=== PATIENT | male | born 1985 | race Caucasian/White ===

== ENCOUNTER 2022-11-10 22:32 | Observation (INO) | payer MEDICAID, SELFPAY ==
[2022-11-10 22:33] VITALS: BP 163/102; PULSE 67; RESP 22; TEMP 36.8; O2SAT 97
[2022-11-10 22:40] VITALS: BMI 31.8
[2022-11-10 22:48] VITALS: BP 164/105; PULSE 78; RESP 14; O2SAT 99
--- NOTE | 2022-11-10 23:05 | US_ITS ---
EXAM: US abdomen, limited, right upper quadrant. HISTORY: PAIN-UPPER ABD TECHNIQUE: US Abdomen RUQ (limited) COMPARISON: None. LIMITATIONS: Constipation movement due to pain. LIVER Size: Elongated right hepatic lobe measuring 19.3 cm in length. Masses: None. Contour: Normal. Echotexture: Normal. Bile ducts: Normal. Portal veins: Normal. Normal hepatopedal flow. Visualized hepatic veins are also patent. GALLBLADDER Size: Mildly distended measuring 11.4 cm in length by 4.3 cm in transverse diameter. Stones/sludge: Multiple mobile stones. Wall thickness: Normal. Gallbladder wall measures 2.4 mm in thickness. Pericholecystic fluid: None. Sonographic Razo sign: Negative. EXTRAHEPATIC BILE DUCTS: Normal. Common bile duct measures 4.8 mm in transverse diameter. RIGHT KIDNEY: Normal. Right kidney measures 9.5 cm in length. No hydronephrosis. ASCITES: None. PLEURAL EFFUSIONS: None. OTHER: Visualized pancreas is unremarkable. CONCLUSION: Cholelithiasis. Mildly distended gallbladder. No gallbladder wall thickening, pericholecystic fluid or biliary ductal dilatation. Electronically Signed: Shahbaz Mcpherson MD at 0:06 EDT , US/Gallbladder IMPRESSION: undefined
[2022-11-10 23:30] LABS: Bacteria 0 SEEN /hpf (None Seen); Mucous, Urine 0 SEEN /hpf (<or=2+); Red Blood Cells-Urine 0 SEEN /hpf (0-5); Squamous Epithelial Cells - UA 0 SEEN /hpf (0-5); White Blood Cells 0 SEEN /hpf (0-5)
[2022-11-10 23:32] LABS: Color, Urine Yellow (Yellow); Glucose, Dipstick Normal (Normal); Ketone-Dipstick Negative (Negative); Leukocyte Esterase-Dipstick Negative /ul (Negative); Nitrite-Dipstick Negative (Negative); Occult Blood-Urine Negative /ul (Negative); Protein-Dipstick 15 mg/dl (Negative); Specific Gravity, Urine 1.025 (1.002-1.030); Urine Bilirubin Dipstick Negative (Negative); Urine Clarity Clear (Clear); Urine Urobilinogen Normal (Normal)
--- NOTE | 2022-11-10 23:36 | EDS_ITS ---
HPI HPI - GI History of Present Illness Chief Complaint: Abd Pain Informant: patient Abdominal Pain/Flank Pain Onset: Today (Several hours) Context: Gradual Onset Timing: Continuous and Waxes and wanes (Initially but now constant) Quality: Aching Location: RUQ (Radiating around to the right mid back, kind of between his shoulder blades) Current Severity: Severe Maximum Severity: Severe Worsened by: Movement (a little) Relieved by: Nothing Nausea/Vomiting/Emesis GI Symptom: Positive for Nausea and Vomiting (only when I forced myself) Quality: Positive for Nonbilious; Negative for Blood streaks Diarrhea/Melena/Hematochezia GI Symptom: Negative for Diarrhea, Melena or Hematochezia Associated Symptoms Associated Symptoms: Negative for Dysuria, Frequency, Hematuria or Urgency Narrative Narrative: Patient with right upper quadrant pain that radiates into his right mid back, initially colicky but no constant painful never had this before, no prior abdominal surgeries. No urinary symptoms recently. A little worse when he takes a deep breath in, no recent cough, shortness of breath, or fevers. No recent leg pain or swelling. No history of DVT or PE. No recent travel out of the area or immobilization, hospitalization. [facility] Medical History Hypertension Home Medications lisinopril 40 mg tablet 40 mg PO DAILY 11/10/22 [History Last Taken Unknown] Allergy/AdvReac Type Severity Reaction Status Date / Time No Known Allergies Allergy Verified 11/10/22 22:39 Social History Smoking Status: Current every day smoker tobacco type: cigarettes ROS ROS ED Constitutional Constitutional ED: Denies chills or fever(s) Eyes Eyes: Denies change in vision or diplopia ENT ENT ED: Denies rhinorrhea or sore throat Cardiovascular Cardiovascular: Denies chest pain, leg edema or palpitations Respiratory/Chest Respiratory/Chest: Denies cough or dyspnea Gastrointestinal Gastrointestinal: Reports abdominal pain, nausea and vomiting; Denies diarrhea or melena Genitourinary Genitourinary ED: Denies dysuria or hematuria Musculoskeletal Musculoskeletal: Denies back pain, extremity pain or neck pain Integumentary Denies abscess or rash Neurologic Neurologic: Denies headache(s), paresthesias or weakness Psychiatric Psychiatric: Denies anxiety or suicidal thoughts EXAM Physical Exam Const Vital Signs: 11/10/22 22:33 11/10/22 22:48 Temperature 98.2 F Temperature Source Temporal Pulse Rate 67 78 Respiratory Rate 22 H 14 Blood Pressure 163/102 H 164/105 H Blood Pressure Mean 122 124 Pulse Ox 97 99 Oxygen Delivery Method Room Air Room Air Positive well nourished and well developed Constitutional Narrative: Uncomfortable, holding right upper quadrant/right lower ribs area, moving around the room without difficulty. General Appearance ED: well developed and NAD HEENT Reports moist mucous membranes normocephalic and atraumatic Eyes PERRL and EOMs intact bilaterally Neck full ROM and supple Resp normal respiratory effort and clear to auscultation bilaterally Cardio regular rate, regular rhythm and no murmurs GI non-tender and non-distended GI Narrative: Initially no right upper quadrant tenderness, however when performing Razo's test, very positive Auscultation: normoactive bowel sounds Palpation: soft Back/Spine no CVA tenderness General Back: other FROM Extremity normal to inspection General Extremety ED: Negative for edema, pulses abnormal or tenderness General Extremity: Negative for edema or pulses abnormal Neuro oriented x3, CN's II-XII intact bilaterally and no sensory deficits noted Sensorium / Orientation: awake and alert Motor Exam: strength 5/5 throughout Skin no rashes or lesions noted and no wounds MDM MDM MDM Narrative Medical decision making narrative: Differential here includes biliary colic, GI etiologies, lower lobe pneumonia, kidney stone/renal colic. I ordered an ultrasound of the right upper quadrant since that was more likely to be the source, it confirms cholelithiasis, pain medication help, he has a leukocytosis but no elevation of his liver enzymes and his urine is normal/clear. On reexamination his pain is improved but still pre sent especially in his back. He still has significant Razo sign with palpation in his right upper quadrant. Given that and his leukocytosis with a leftward shift, my suspicion is that he has early cholecystitis. Discussed with Dr. Rosenthal on for surgery who is in agreement with admission, I started him on Zosyn and more pain medication. Lab Data Attestation: I reviewed the patient's lab results. Labs: Laboratory Results - last 24 hr 11/10/22 11/11/22 11/11/22 23:25 00:30 00:30 WBC 15.9 H RBC 4.97 Hgb 14.8 Hct 43.0 MCV 86.5 MCH 29.8 MCHC 34.4 RDW Std Deviation 39.4 RDW Coeff of Caprice 12.5 Plt Count 204 MPV 11.4 Immature Gran % (Auto) 0.400 Neut % (Auto) 82.2 H Lymph % (Auto) 12.6 L [place] % (Auto) 4.1 Eos % (Auto) 0.3 Baso % (Auto) 0.4 Absolute Neuts (auto) 13.0 H Absolute Lymphs (auto) 1.99 Nucleated RBC % 0 Plt Morphology Comment CLUMPED Sodium 139 Potassium 4.1 Chloride 111 H Carbon Dioxide 20.0 L Anion Gap 8 BUN 15 Creatinine 1.02 Estim Creat Clear Calc 108.83 Est GFR (MDRD) Af Amer 105 Est GFR (MDRD) Non-Af 87 BUN/Creatinine Ratio 14.7 Glucose 125 H Calcium 9.9 Total Bilirubin 0.40 AST 27 ALT 27 Alkaline Phosphatase 60 Total Protein 8.7 H Albumin 4.3 Globulin 4.4 H Albumin/Globulin Ratio 1.0 Lipase 129 Urine Color Yellow Urine Clarity Clear Urine pH 5.0 Ur Specific [place] 1.025 Urine Protein 15 H Urine Glucose (UA) Normal Urine Ketones Negative Urine Occult Blood Negative Urine Nitrite Negative Urine Bilirubin Negative Urine Urobilinogen Normal Ur Leukocyte Esterase Negative Urine RBC 0 SEEN Urine WBC 0 SEEN Ur Squamous Epith Cells 0 SEEN Urine Bacteria 0 SEEN Urine Mucus 0 SEEN Radiography Diagnostic Testing: Clinical Impression(s) from Imaging Studies Gallbladder Ultrasound 11/10/22 23:05 IMPRESSION: undefined My interpretation of the US agrees with that of the radiologist. Discharge Plan Triage Chief Complaint: Abd Pain ED Provider: Ru Olson Dx/Rx/DC Orders Clinical Impression: Acute calculous cholecystitis Prescriptions: No Action lisinopril 40 mg tablet 40 mg PO DAILY Primary Care Provider: Care Physician,No Primary Referrals: Care Physician,No Primary [Primary Care Provider] - Disposition Disposition: [facility]
[2022-11-11] VITALS (14 sets, daily range): BP systolic 117–203; BP diastolic 81–122; PULSE 59–120; RESP 18; TEMP 36.4–37.6; O2SAT 94–98; BMI 31.5
[2022-11-11] MEDS: Ondansetron 4 MG/2 ML Vial IV ×2 (00:17→18:34)
[2022-11-11] MEDS: Morphine 4 MG/ML Syringe IV ×2 (00:17→02:08)
[2022-11-11] MEDS: Ketorolac 30 MG/ML Syringe IV ×3 (00:17→23:22)
[2022-11-11 00:36] LABS: Absolute Lymphocyte Count 1.99 X10^3/uL (0.83-4.51); Basophil# 0.06 X10^3/uL; Basophil% 0.4 % (0-1); Eosinophil# 0.05 X10^3/uL; Eosinophils% 0.3 % (0-5); Hemoglobin 14.8 g/dL (13.0-16.5); Lymphocyte # 1.99 X10^3/ul (0.83-4.51); Lymphocyte % 12.6 % (19-41); Mean Corp Hgb Conc 34.4 g/dL (32-36); Mean Corpuscular Hgb 29.8 pg (27.0-32.0); Mean Corpuscular Volume 86.5 fL (80-94); Mean Platelet Vol. 11.4 fl (6.2-12.0); Monocyte# 0.65 X10^3/uL; Monocyte% 4.1 % (0-10); NRBC Flagged by Analyzer 0 % (0-5); Neutrophil # 13.04 X10^3/uL (2.7-7.7); Neutrophil % 82.2 % (47-70); POSITIVE COUNT YES; Platelet Count 204 K/mm3 (150-450); RBC Distribution Width CV 12.5 % (11.6-14.6); RBC Distribution Width SD 39.4 fl (35.1-43.9); Red Blood Count 4.97 M/mm3 (4.6-6.2); White Blood Count 15.9 K/mm3 (4.4-11.0)
[2022-11-11 00:38] LABS: Differential Indicated SCAN CRITERIA MET
[2022-11-11 00:50] LABS: Platelet Morphology CLUMPED
[2022-11-11 00:56] LABS: AST(SGOT) 27 U/L (15-37); Alanine Aminotransfer ALT/SGPT 27 U/L (16-61); Albumin, Serum 4.3 g/dL (3.2-5.0); Alkaline Phosphatase 60 U/L (45-117); Anion Gap 8 (5-15); BUN 15 mg/dL (7-18); BUN/Creat Ratio 14.7 RATIO (10-20); Calcium,Total 9.9 mg/dL (8.5-10.1); Chloride 111 mmol/L (98-107); Creatinine, Serum 1.02 mg/dL (0.70-1.30); EST Glomerular Filtration Rate 87 mL/min (>60); Est Glom Filt Rate - Afr Amer 105 mL/min (>60); Estimated Creatinine Clearance 108.83 ml/min; Globulin 4.4 g/dL (2.2-4.2); Glucose 125 mg/dL (74-106); Lipase 129 U/L (73-393); Potassium 4.1 mmol/L (3.5-5.1); Protein, Total 8.7 g/dL (6.4-8.2); Sodium Level 139 mmol/L (136-145)
[2022-11-11] MEDS: Dextrose 5%/0.9% NaCl 1,000 ML 75 ML IV ×2 (03:37→20:39)
[2022-11-11] MEDS: HYDROmorphone 1 MG/ML Syringe IV ×7 (03:38→23:29)
[2022-11-11] MEDS: 0.9% Saline Lock 10 ML Syringe IV ×7 (03:38→23:29)
[2022-11-11] MEDS: Lisinopril 40 MG Tablet PO (06:46)
--- NOTE | 2022-11-11 07:18 | HP.PCM.SX_ITS ---
HPI - General General Date of Admission: 11/11/22 Date of Service: 11/11/22 Chief Complaint: abdominal pain HPI Narrative EUSEBIA HAMILTON, is a 37 M who presents with abdominal pain. Recently released from nursing home. Patient began with pain suddenly yesterday. Also associated with nausea/emesis. Denies fevers. Presented to [facility] ED with elevated WBC, normal LFTs. Pain is constant and never had this before, no prior abdominal surgeries.? No u rinary symptoms recently.? A little worse when he takes a deep breath in, no recent cough, shortness of breath, or fevers.? No recent leg pain or swelling.? No history of DVT or PE.? No recent travel out of the area or immobilization, hospitalization. [facility] Medical History Hypertension Home Medications lisinopril 40 mg tablet 40 mg PO DAILY 11/10/22 [History Last Taken Unknown] Allergy/AdvReac Type Severity Reaction Status Date / Time No Known Allergies Allergy Verified 11/10/22 22:39 Social History Smoking Status: Former smoker ROS Constitutional Constitutional: Reports chills and fever(s); Denies weight gain or weight loss Cardiovascular Cardiovascular: Denies chest pain at rest Respiratory/Chest Respiratory/Chest: Denies shortness of breath at rest Gastrointestinal Gastrointestinal: Reports abdominal pain Genitourinary Genitourinary: Denies hematuria Musculoskeletal Musculoskeletal: Denies abnormal gait Integumentary Integumentary: Denies jaundice Neurologic Neurologic: Denies focal weakness Endocrine Endocrinology: Denies flushing Hematologic/Lymphatic Hematologic/Lymphatic: Denies easy bleeding or easy bruising Vital Signs Vital Signs Vital Signs: 11/10/22 22:33 11/10/22 22:48 11/11/22 02:17 Temperature 98.2 F 98 F Temperature Source Temporal Temporal Pulse Rate 67 78 76 Respiratory Rate 22 H 14 18 Respiratory Effort Respiratory Depth Respiratory Pattern Blood Pressure 163/102 H 164/105 H 157/97 H Blood Pressure Mean 122 124 117 Blood Pressure Source Blood Pressure Position Blood Pressure Location Pulse Ox 97 99 96 Oxygen Delivery Method Room Air Room Air Room Air 11/11/22 03:07 11/11/22 03:10 11/11/22 05:56 Temperature 98.2 F 98.3 F Temperature Source Oral Oral Pulse Rate 59 L 73 Respiratory Rate 18 18 Respiratory Effort Normal Non-Labored Respiratory Depth Normal Respiratory Pattern Normal Blood Pressure 191/114 H 187/122 H Blood Pressure Mean 139 143 Blood Pressure Source Monitor Monitor Blood Pressure Position Semi-Fowlers Semi-Fowlers Blood Pressure Location Right Arm Right Arm Pulse Ox 94 95 Oxygen Delivery Method Room Air Room Air Room Air Weight Weight: 105.5 kg Body Mass Index (BMI) 31.5 Physical Exam Const oriented x3 Constitutional Narrative: writhing in bed in pain, states that it is constant Resp normal respiratory effort Cardio regular rate GI GI Narrative: abdomen is tender RUQ with positive Razo's sign Extremity no clubbing, cyanosis or edema Results Medical Records Data Attestation: I reviewed the patient's medical records Lab / Micro Data Attestation: I reviewed the patient's lab results. Result Diagrams: 11/11/22 00:30 11/11/22 00:30 Labs: Laboratory Results - last 24 hr 11/10/22 23:25: Urine Color Yellow, Urine Clarity Clear, Urine pH 5.0, Ur Specific [place] 1.025, Urine Protein 15 H, Urine Glucose (UA) Normal, Urine Ketones Negative, Urine Occult Blood Negative, Urine Nitrite Negative, Urine Bilirubin Negative, Urine Urobilinogen Normal, Ur Leukocyte Esterase Negative, Urine RBC 0 SEEN, Urine WBC 0 SEEN, Ur Squamous Epith Cells 0 SEEN, Urine Bacteria 0 SEEN, Urine Mucus 0 SEEN 11/11/22 00:30: WBC 15.9 H, RBC 4.97, Hgb 14.8, Hct 43.0, MCV 86.5, MCH 29.8, MCHC 34.4, RDW Std Deviation 39.4, RDW Coeff of Caprice 12.5, Plt Count 204, MPV 11.4, Immature Gran % (Auto) 0.400, Neut % (Auto) 82.2 H, Lymph % (Auto) 12.6 L, [place] % (Auto) 4.1, Eos % (Auto) 0.3, Baso % (Auto) 0.4, Absolute Neuts (auto) 13.0 H, Absolute Lymphs (auto) 1.99, Nucleated RBC % 0, Plt Morphology Comment CLUMPED 11/11/22 00:30: Sodium 139, Potassium 4.1, Chloride 111 H, Carbon Dioxide 20.0 L , Anion Gap 8, BUN 15, Creatinine 1.02, Estim Creat Clear Calc 108.83, Est GFR (MDRD) Af Amer 105, Est GFR (MDRD) Non-Af 87, BUN/Creatinine Ratio 14.7, Glucose 125 H, Calcium 9.9, Total Bilirubin 0.40, AST 27, ALT 27, Alkaline Phosphatase 60, Total Protein 8.7 H, Albumin 4.3, Globulin 4.4 H, Albumin/Globulin Ratio 1.0 , Lipase 129 Radiology Impression Gallbladder Ultrasound 11/10/22 23:05 IMPRESSION: undefined Assessment & Plan Assessment/Plan (1) Acute calculous cholecystitis: PLAN: see below PLAN: Plan patient with intractable abdominal pain due to acute cholecystitis Will plan laparoscopic cholecystectomy I have counseled the patient as to the risks of the procedure, including but not limited to: infection, bleeding, injury to any blood vessels/nerves, scar tissue, injury to any intrabdominal organs, injury to kidney/ureters, injury to bowel/bladder, injury to the common bile duct/biliary tree, bile leakage, intraabdominal abscess/bleeding, hernias at incisional sites, wound infections, possible open procedure, complications of anesthesia, postoperative pneumonia/cardiac problems/blood clots etc. the patient understands. He agrees to proceed. I have answered all questions to the patient?s satisfaction and the patient has no further questions. Will attempt to find OR time as soon as feasible, however, between my schedule and the OR schedule this may take 1-3 days, etc.I have told the patient this.
--- NOTE | 2022-11-11 08:01 | EKG12_ITS ---
Test Reason : PRE OP Blood Pressure : / mmHG Vent. Rate : 061 BPM Atrial Rate : 061 BPM P-R Int : 164 ms QRS Dur : 088 ms QT Int : 368 ms P-R-T Axes : 022 -15 -07 degrees QTc Int : 370 ms Sinus rhythm with marked sinus arrhythmia Voltage criteria for left ventricular hypertrophy Abnormal ECG No previous ECGs available Confirmed by JOON GANNON, ARI ([id number]), newspaper copy editor KAYLEEN HERNANDEZ ([id number]) on 11/12/2022 8:26:16 AM Referred By: PASTORA Confirmed By:ARI DUPREE MD
--- NOTE | 2022-11-11 08:19 | NURSING ---
IV in left shoulder infiltrated, fluid collection noted. pt denies pain to area during palpation. call made to [facility] for restart - according to pt only place to get an IV on me is in my neck.
[2022-11-11] MEDS: amLODIPine 10 MG Tablet PO (09:23)
[2022-11-11] MEDS: hydrALAZINE 20 MG/ML Vial 10 MG IV ×2 (10:14→16:26)
--- NOTE | 2022-11-11 10:50 | PCM.CONS.GEN ---
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 He has a history of high blood pressure. He reported the pain was initially colicky. He never had anything like this previously. He reported it is a little bit worse with deep breathing but denied any cough, shortness of breath, or fevers. He had some associated nausea and review of systems was negative for diarrhea melena or hematochezia. His symptoms initially wax and wane but at the time of presentation they were constant and he did have some radiation to his mid back between his shoulder blades as well. Vital signs at presentation showed a temperature of 98.2, heart rate 67, blood pressure 163/102, respiratory rate of 22 and oxygen saturation was 97% on room air. He had a leukocytosis with a left shift and hyponatremia with hypochloremia which has since resolved. His lipase was normal. His UA was unremarkable other than some small proteinuria. An ultrasound of his gallbladder was performed and showed cholelithiasis with a mildly distended gallbladder and he was admitted to the surgical service with acute calculus cholecystitis and plan for laparoscopic cholecystectomy. Patient was found to have persistently elevated blood pressure despite reinitiating his home lisinopril 40 mg and we have been consulted for management of hypertension. Plan is for surgery on . Patient is evaluated at the bedside and currently just complaining of abdominal pain that radiates to his back. He was just medicated with Dilaudid. He states he has had blood pressure issues for some time and has been taking his home medication but does not follow-up regularly to have his blood pressure checked. He has no idea what his baseline blood pressure has been running prior to admission. [facility] Medical History (Updated 11/11/22 @ 11:[address] Annel Denson DO) History of heroin abuse History of methamphetamine abuse History of tobacco abuse Hypertension Home Medications lisinopril 40 mg tablet 40 mg PO DAILY 11/10/22 [History Last Taken Unknown] Allergy/AdvReac Type Severity Reaction Status Date / Time No Known Allergies Allergy Verified 11/10/22 22:39 Family History (Updated 11/11/22 @ 11:[address] Annel Denson DO) Other CAD (coronary artery disease) Heart disease no surgical history Social History (Updated 11/11/22 @ 11:[address] Annel Denson DO) Smoking Status: Former smoker alcohol intake: never substance use type: former substance user Date of last use: 26 months ago (heroin/methamphetamines) ROS Constitutional Constitutional: Reports chills; Denies anorexia, change in weight, fatigue, fever(s), malaise, night sweats, weakness or other Eyes Eyes: Denies blurry vision, change in eye color, change in vision, discharge from eye(s), double vision, erythema, eye pain, loss of vision or other ENT HEENT: Denies abnormal hearing, dysphagia, ear pain, epistaxis, headache(s), hearing loss, nasal congestion, nasal discharge, post nasal drip, sinus pressure, sore throat or other Cardiovascular Cardiovascular: Denies chest pain, claudication, dyspnea on exertion, edema, lightheadedness, orthopnea, palpitations, paroxysmal nocturnal dyspnea, rapid heart rate, syncope or other Respiratory/Chest Respiratory/Chest: Denies cough, dyspnea, excessive phlegm production, hemoptysis, productive cough, shortness of breath at rest, shortness of breath with exertion, wheezing or other Gastrointestinal Gastrointestinal: Reports abdominal pain and nausea; Denies coffee ground emesis, constipation, diarrhea, dyspepsia, hematemesis, hematochezia, loose stools, melena, vomiting or other Genitourinary Genitourinary: Denies burning urination, difficulty urinating, dysuria, hematuria, nocturia, urinary frequency, urinary hesitancy, urinary incontinence, urinary urgency or other Musculoskeletal Musculoskeletal: Denies arthralgias, back pain, joint pain, joint stiffness, joint swelling, myalgias, neck pain or other Neurologic Neurologic: Denies abnormal gait, abnormal speech, confusion, disequilibrium, dizziness, focal weakness, headache(s), numbness, paresthesias, seizure-like activity, seizures, syncope, tingling, tremor(s) or other Psychiatric Psychiatric: Denies anxiety, depression, homicidal ideation, suicidal ideation or other Endocrine Endocrinology: Denies change in body appearance, cold intolerance, excessive sweating, heat intolerance, polydipsia, polyuria or other Hematologic/Lymphatic Hematologic/Lymphatic: Denies anemia, easy bleeding, easy bruising, lymphadenopathy or other Allergic/Immunologic Allergic/Immunologic: Denies rhinitis, hives, eczemia, asthma or other Physical Exam Const alert, oriented x3 and well nourished Constitutional Narrative: Lower middle-aged white male, sitting up on the edge of the bed getting back into bed, appears cold, nontoxic but appears uncomfortable, currently complaining of abdominal pain radiating to his back HEENT normocephalic, head/scalp atraumatic, hearing grossly normal bilaterally and moist oral mucous membranes HEENT Narrative: Edentulous, Mallampati 2, no thrush Resp normal respiratory effort, no retractions, no use of accessory muscles and clear to auscultation bilaterally Auscultation: Negative for rales, rhonchi or wheezes Cardio regular rate, regular rhythm, S1 normal heart sound, S2 normal heart sound, no murmurs, no rub and no clicks; Negative for no gallops Cardio Narrative: S4 gallop noted GI normal to inspection, nondistended, normoactive bowel sounds and soft to palpation GI Narrative: Tender right upper quadrant with positive Razo sign Extremity no clubbing, cyanosis or edema Extremity Narrative: Pedal pulses and radial pulses are 2+ Neuro oriented x3, CN's II-XII intact bilaterally, moves all extremities and no focal motor deficits Speech: speech normal Psych Psych Narrative: Flat but appropriately interactive Lab / Micro Data Result Diagrams: 11/11/22 00:30 11/11/22 00:30 Labs: Laboratory Results - last 24 hr 11/10/22 23:25: Urine Color Yellow, Urine Clarity Clear, Urine pH 5.0, Ur Specific [place] 1.025, Urine Protein 15 H, Urine Glucose (UA) Normal, Urine Ketones Negative, Urine Occult Blood Negative, Urine Nitrite Negative, Urine Bilirubin Negative, Urine Urobilinogen Normal, Ur Leukocyte Esterase Negative, Urine RBC 0 SEEN, Urine WBC 0 SEEN, Ur Squamous Epith Cells 0 SEEN, Urine Bacteria 0 SEEN, Urine Mucus 0 SEEN 11/11/22 00:30: WBC 15.9 H, RBC 4.97, Hgb 14.8, Hct 43.0, MCV 86.5, MCH 29.8, MCHC 34.4, RDW Std Deviation 39.4, RDW Coeff of [place] 12.5, Plt Count 204, MPV 11.4, Immature Gran % (Auto) 0.400, Neut % (Auto) 82.2 H, Lymph % (Auto) 12.6 L, [place] % (Auto) 4.1, Eos % (Auto) 0.3, Baso % (Auto) 0.4, Absolute Neuts (auto) 13.0 H, Absolute Lymphs (auto) 1.99, Nucleated RBC % 0, Plt Morphology Comment CLUMPED 11/11/22 00:30: Sodium 139, Potassium 4.1, Chloride 111 H, Carbon Dioxide 20.0 L, Anion Gap 8, BUN 15, Creatinine 1.02, Estim Creat Clear Calc 108.83, Est GFR (MDRD) Af Amer 105, Est GFR (MDRD) Non-Af 87, BUN/Creatinine Ratio 14.7, Glucose 125 H, Calcium 9.9, Total Bilirubin 0.40, AST 27, ALT 27, Alkaline Phosphatase 60, Total Protein 8.7 H, Albumin 4.3, Globulin 4.4 H, Albumin/Globulin Ratio 1.0, Lipase 129 Radiology Impression Gallbladder Ultrasound 11/10/22 23:05 IMPRESSION: undefined Charges/Coding Visit Charges Inpatient E&M: 01117 Subs Hosp L2
--- NOTE | 2022-11-11 11:22 | ECHOD_ITS ---
Reason For Study: HTN Procedure This was a 2D Doppler, Color Flow transthoracic echocardiogram. Exam performed portable in patient room. Left Ventricle Normal LV size. Left ventricular systolic function is normal. The estimated ejection fraction is 60 %. Stage 1 diastolic dysfunction. No regional wall motion abnormalities noted. Right Ventricle Normal RV size. Normal systolic function. Atria Normal left atrium. Normal right atrium. Mitral Valve Normal mitral valve. Tricuspid Valve Normal tricuspid valve. Aortic Valve Trisinus/trileaflet aortic valve. Pulmonic Valve Normal pulmonic valve. Great Vessels Normal aortic root. The pulmonary artery is normal size. Normal inferior vena cava. Pericardium/Pleural No pericardial effusion. MMode/2D Measurements & Calculations LVIDd: 5.2 cm IVSd: 1.3 cm Ao root diam: 3.6 cm LVIDs: 3.0 cm LVPWd: 1.1 cm FS: 41.4 % LAV(MOD-bp): 43.1 ml LVAd ap4: 33.5 cm2 LVAd ap2: 27.5 cm2 LAV(MOD-bp) Indexed: 19.0 ml/m2 LVLd ap4: 9.3 cm LVLd ap2: 8.7 cm LAV(MOD-sp2): 37.9 ml EDV(MOD-sp4): 99.0 ml EDV(MOD-sp2): 75.2 ml LAV(MOD-sp4): 48.3 ml EDV(sp4-el): 101.9 ml EDV(sp2-el): 73.5 ml LVAs ap4: 18.9 cm2 LVAs ap2: 14.6 cm2 LVLs ap4: 7.7 cm LVLs ap2: 6.9 cm ESV(MOD-sp4): 40.9 ml ESV(MOD-sp2): 27.4 ml ESV(sp4-el): 39.5 ml ESV(sp2-el): 26.1 ml EF(MOD-sp4): 58.7 % EF(MOD-sp2): 63.6 % EF(sp4-el): 61.3 % SV(MOD-sp4): 58.1 ml SV(MOD-sp2): 47.8 ml SV(sp4-el): 62.4 ml LA dimension(2D): 4.3 cm LA A4 area: 19.3 cm2 RA A4 area: 15.5 cm2 Time Measurements MV dec time: 0.20 sec Doppler Measurements & Calculations MV E max eric: 63.8 cm/sec Lat Peak E' Eric: 20.1 cm/sec Med Peak E' Eric: 10.2 cm/sec MV A max eric: 68.9 cm/sec E/E' lat: 3.2 E/E' med: 6.3 MV E/A: 0.93 MV V2 max: 86.0 cm/sec MV dec slope: 317.6 cm/sec2 Ao V2 max: 110.8 cm/sec MV max P.0 mmHg Ao max P.9 mmHg MV V2 mean: 53.5 cm/sec Ao V2 mean: 80.8 cm/sec MV mean P.3 mmHg Ao mean P.9 mmHg MV V2 VTI: 26.4 cm Ao V2 VTI: 23.7 cm AV (velocity ratio): 0.88 LV V1 max: 101.5 cm/sec PA V2 max: 131.6 cm/sec LV V1 max P.1 mmHg PA V2 mean: 97.3 cm/sec LV V1 mean P.3 mmHg LV V1 mean: 71.4 cm/sec LV V1 VTI: 20.8 cm ECHO/Echo Complete Interpretation Summary Normal LV size. Left ventricular systolic function is normal. The estimated ejection fraction is 60 %. Stage 1 diastolic dysfunction. Structurally normal valves. Ordering Physician: Annel Denson Referring Physician: BRIANNA PCP Performed By: Trish Snyder RCS
[2022-11-11 11:29] LABS: Thyroid Stim Hormone (TSH) 2.38 uIU/mL (0.358-3.74)
[2022-11-11] MEDS: oxyCODONE 5 MG Tablet 10 MG PO ×2 (11:41→18:25)
--- NOTE | 2022-11-11 11:48 | ADDICTION ---
This worker met with patient to offer support while in hospital. Peer support will meet with patient as well. Patient will discharge back to [facility] treatment center once medically cleared after surgery. Will continue to check in.
[2022-11-11] MEDS: HYDROmorphone 0.5 MG/0.5 ML SYRINGE IV (13:37)
[2022-11-11] MEDS: hydroCHLOROthiazide 25 MG Tablet PO (13:37)
--- NOTE | 2022-11-11 18:16 | RDU_ITS ---
Reason For Study: Hypertension Right Renal Artery Left Renal Artery Right renal artery ostium Left renal artery ostium 65.5/21.8 142.7/49.9 RSV/EDV. PSV/EDV. Right renal artery proximal Left renal artery proximal PSV/EDV 128.9/41.3 PSV/EDV. 71.6/21.7 . Right renal artery mid 136.3/46.7 Left renal artery mid 75.7/23.7 PSV/EDV. PSV/EDV . Right renal artery distal Left renal artery distal 145.4/44.9 142.7/53.1 PSV/EDV. PSV/EDV. Right RAR 1.66. Left RAR 1.69. Right Renal Parenchyma Left Renal Parenchyma Upper Pole Medula 38.0/16.5 Left upper pole medulla 34.8/13.0 PSV/EDV. PSV/EDV . Right upper pole medulla EDR 0.40 . Left upper pole medulla EDR 0.40 . Right upper pole medulla R.I. Left upper pole medulla R.I. 0.62 . 0.57 . UP Cortex 24.4/10.7 PSV/EDV. Upper Samir Cortx 21.8/9.6 PSV/EDV. Left upper pole cortex EDR 0.40 . Right upper pole cortex EDR 0.40 . Left upper pole cortex R.I. 0.56 . Right upper pole cortex R.I. 0.56 . Left lower Pole medulla 29.1/13.5 Right lower Pole medulla 28.7/9.1 PSV/EDV . PSV/EDV . Left lower pole medulla EDR 0.50 . Right lower pole medulla EDR 0.30 . Left lower pole medulla R.I. 0.54 . Right lower pole medulla R.I. Lower Pole Cortx 24.8/11.1 PSV/EDV. 0.68 . Left lower pole cortex EDR 0.40 . Lower Pole Cortex 20.9/6.9 PSV/EDV. Left lower pole cortex R.I. 0.55 . Right lower pole cortex EDR 0.30 . Left Renal Hilar Right lower pole cortex R.I. 0.67 . LT Hilar avg 112.5/34.0 PSV/EDV . Right Renal Hilar Left hilar acceleration time 30 Right Hilar avg 47.9/16.8 PSV/EDV. m/sec. Right hilar acceleration time 40 Left Renal Dimensions m/sec. Left kidney size 10.25 cm . Right Renal Dimensions Left cortical dimension 1.6 cm . Right kidney size 11.80 cm . Right cortical dimension 1.22 cm . Aorta Proximal abdominal aorta 2.01 x 2.01 cm . Distal abdominal aorta 1.45 x 1.49 cm . Proximal abdominal aorta peak systolic velocity is 75.7 cm/sec . Distal abdominal aorta peak systolic velocity is 85.9 cm/sec . Procedures Technically difficult exam due to bowel gas. VL/Renal Artery Duplex Ultrasound Interpretation Summary Maximal aortic diameter is proximally at 2.01 x 2.01 cm in diameter which is no rmal. Normal aortic flow velocities. Less than 60% stenosis bilateral renal arteries Maintained right renal length of 11.8 cm Maintained left renal length of 10.25 cm Normal bilateral renal resistive indices suggesting normal parenchymal function Ordering Physician: Bharti Cruz Referring Physician: N/A Performed By: Zach Tomas RVT
[2022-11-11] MEDS: Labetalol (Prefilled) 20 MG/4 ML IV (18:34)
--- NOTE | 2022-11-11 19:33 | CT_ITS ---
STUDY: CTA CHEST REASON FOR EXAM: Male, 37 years old. Subclavian stenosis. Previous drug abuse. RADIATION DOSAGE (If Supplied By Facility): CTDIvol = ( 18.60 ) mGy, DLP = ( 670.06 ) mGycm TECHNIQUE: The examination was performed with the intravenous administration of 100 mL of Isovue 350. Post-processing of the angiographic images was performed, with multiplanar reformation and 3D reconstruction. Individualized dose optimization techniques were used for this CT. COMPARISON: None. FINDINGS: Normal enhancement of the main pulmonary artery and right and left pulmonary arteries. Normal enhancement of the bilateral peripheral pulmonary arteries. There is no demonstrated pulmonary embolism. Normal thoracic aorta and visualized great vessels. No visualized subclavian artery stenosis. No axillary arterial abnormality. There is no demonstrated aortic dissection. Normal heart and pericardium. No coronary artery calcifications Normal mediastinum. Normal hilar regions. Normal visualized trachea and bronchi. The lungs are well expanded. Normal pulmonary parenchyma. Normal pleura. Normal chest wall structures. Normal osseous structures. Hepatic steatosis. Upper abdomen appears otherwise grossly normal. CT/CTA Chest W/WO Contrast IMPRESSION: 1. Normal thoracic aorta. There is no evidence of stenosis of the great vessels. The bilateral subclavian and axillary arteries are normal diameter in appearance. 2. No evidence of pulmonary embolus. 3. No acute cardiopulmonary disease. Electronically Signed: Alban Rosario DO at 17:04 EDT Reading Location ID and State: [facility] Tel [phone], Service support ,
[2022-11-12 05:15] VITALS: BP 150/89; PULSE 82; RESP 18; TEMP 36.8; O2SAT 96
[2022-11-12] MEDS: Ketorolac 30 MG/ML Syringe IV ×4 (05:18→23:17)
[2022-11-12] MEDS: Acetaminophen 325 MG Tablet 650 MG PO (05:23)
[2022-11-12] MEDS: oxyCODONE 5 MG Tablet 10 MG PO (05:23)
--- NOTE | 2022-11-12 05:44 | PCM.HOSP.N ---
Hospitalist Note Pt with significant discrepancy in BP between B UE (>30mmHg SBP). CTA chest ordered to assess for Subclavian aa stenosis but need better IV access before it can be performed. Midline to be placed today. I did discuss with nsg to us arm with higher pressure for BP assessment at this time. Renal Duplex pending per general surgery.
[2022-11-12 07:09] LABS: Absolute Lymphocyte Count 2.14 X10^3/uL (0.83-4.51); Absolute Neutrophil Count 6.6 X10^3/uL (2.0-7.7); Basophil# 0.03 X10^3/uL; Basophil% 0.3 % (0-1); Eosinophils% 1.9 % (0-5); Hematocrit 42.9 % (40-54); Hemoglobin 14.5 g/dL (13.0-16.5); Lymphocyte # 2.14 X10^3/ul (0.83-4.51); Lymphocyte % 20.8 % (19-41); Mean Corp Hgb Conc 33.8 g/dL (32-36); Mean Corpuscular Hgb 29.7 pg (27.0-32.0); Mean Corpuscular Volume 87.7 fL (80-94); Mean Platelet Vol. 10.8 fl (6.2-12.0); Monocyte# 1.29 X10^3/uL; Monocyte% 12.5 % (0-10); NRBC Flagged by Analyzer 0 % (0-5); Neutrophil # 6.62 X10^3/uL (2.7-7.7); Neutrophil % 64.3 % (47-70); Platelet Count 222 K/mm3 (150-450); RBC Distribution Width CV 13.1 % (11.6-14.6); RBC Distribution Width SD 42.4 fl (35.1-43.9); Red Blood Count 4.89 M/mm3 (4.6-6.2); White Blood Count 10.3 K/mm3 (4.4-11.0)
--- NOTE | 2022-11-12 07:29 | PCM.PN.HOSP ---
Reason for Visit Reason for Visit: Diagnoses Essential (primary) hypertension (11/11/22) Calculus of gallbladder with acute cholecystitis without obstruction (11/11/22) Subjective Subjective Follow-up for acute calculus cholecystitis. Blood pressure is better. Objective Data Objective Data Vital Signs: Vital Signs Temp Pulse Resp BP Pulse Ox O2 Del Method 98.3 F 82 18 150/89 H 96 Room Air 11/12/22 05:15 11/12/22 05:15 11/12/22 05:15 11/12/22 05:15 11/12/22 05:15 11/12/22 05:15 Oxygen Delivery Method Room Air Weight: 232 lb 9.403 oz Body Mass Index (BMI) 31.5 Intake & Output: Intake and Output for Last 24 Hours 11/10/22 11/11/22 11/12/22 23:59 23:59 23:59 Intake Total 1291.25 / 1291.25 398.75 / 398.75 Balance 1291.25 / 1291.25 398.75 / 398.75 Lab / Micro Data Result Diagrams: 11/12/22 06:35 11/12/22 06:35 Labs: Laboratory Results - last 24 hr 11/11/22 00:30: TSH 2.38 11/11/22 12:46: Cortisol 29.00 H 11/12/22 06:35: WBC 10.3, RBC 4.89, Hgb 14.5, Hct 42.9, MCV 87.7, MCH 29.7, MCHC 33.8, RDW Std Deviation 42.4, RDW Coeff of Caprice 13.1, Plt Count 222, MPV 10.8, Immature Gran % (Auto) 0.200, Neut % (Auto) 64.3, Lymph % (Auto) 20.8, [place] % (Auto) 12.5 H, Eos % (Auto) 1.9, Baso % (Auto) 0.3, Absolute Neuts (auto) 6.6, Absolute Lymphs (auto) 2.14, Nucleated RBC % 0 Radiography Diagnostic Testing: Radiology Impression Echocardiogram 11/11/22 11:22 Interpretation Summary Normal LV size. Left ventricular systolic function is normal. The estimated ejection fraction is 60 %. Stage 1 diastolic dysfunction. Structurally normal valves. Ordering Physician: Annel Denson Referring Physician: NO PCP Performed By: Trish Snyder RCS Physical Exam Narrative Seen and examined. Blood pressure profile is better. Patient denies prior history of pancreatitis but had similar right upper quadrant pain in halfway couple years ago. Denies chronic alcohol use. Physical exam General: Alert, Oriented x3, Cooperative HEENT: Atraumatic, PERRLA, EOMI, Normocephalic Oral: Oral mucosa moist. No Gingival or Mucosal Lesions/ Ulcerations Neck: Supple, No JVD, Negative Carotid Bruits Lungs: Air entry diminished in bilateral lung bases. No crepitation/rhonchi Cardiovascular: Regular rate, Regular Rhythm, Normal S1, Normal S2, No murmurs Abdomen: Bowel Sounds Present, Soft, Non Tender, Non-Distended : No renal angle tenderness. No suprapubic tenderness. Extremities: No edema, Capillary Refill Less than 3 Seconds Skin: No rashes, No breakdown Musculoskeletal: No Tenderness to Palpation of Joints or Extremities Neurological: Cranial nerves II-XII grossly intact, DTR 2+/4 and Symmetrical, Neuro grossly intact Psych/Mental Status: Normal Affect, Appropriate. Assessment & Plan Assessment/Plan (1) HTN (hypertension): PLAN: Plan Hypertension: Blood pressure systolic 130s. On amlodipine 10 mg daily, lisinopril 40 mg daily and HCTZ 25 mg daily. As needed hydralazine IV and labetalol. TSH and cortisol normal. 2D echo EF 60% stage I diastolic dysfunction with structurally normal valves suggestive of mild HFpEF. Overall hypertensin with elevated BP mainly due to nonadherence to medications. Renal artery duplex shows less than 60% stenosis bilateral renal arteries. Acute calculus cholecystitis -Plan is for surgery on 11/13/2022. 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 Left ventricular systolic function is normal. The estimated ejection fraction is 60 %. Stage 1 diastolic dysfunction. Structurally normal valves. Renal Artery Duplex 11/11/22 18:16 Interpretation Summary Maximal aortic diameter is proximally at 2.01 x 2.01 cm in diameter which is normal. Normal aortic flow velocities. Less than 60% stenosis bilateral renal arteries Maintained right renal length of 11.8 cm Maintained left renal length of 10.25 cm Normal bilateral renal resistive indices suggesting normal parenchymal function Charges/Coding Visit Charges Inpatient E&M: 75812 Subs Hosp L2
[2022-11-12 07:35] LABS: Anion Gap 6 (5-15); BUN 17 mg/dL (7-18); Calcium,Total 8.6 mg/dL (8.5-10.1); Chloride 101 mmol/L (98-107); Creatinine, Serum 1.13 mg/dL (0.70-1.30); EST Glomerular Filtration Rate 77 mL/min (>60); Est Glom Filt Rate - Afr Amer 94 mL/min (>60); Estimated Creatinine Clearance 98.24 ml/min; Glucose 100 mg/dL (74-106); Phosphorus 3.5 mg/dL (2.5-4.9); Potassium 3.7 mmol/L (3.5-5.1); Sodium Level 134 mmol/L (136-145)
[2022-11-12] MEDS: 0.9% Saline Lock 10 ML Syringe IV ×6 (07:46→23:17)
[2022-11-12] MEDS: HYDROmorphone 0.5 MG/0.5 ML SYRINGE IV ×5 (07:46→21:53)
[2022-11-12 09:15] VITALS: BP 132/79; PULSE 88; RESP 18; TEMP 36.4; O2SAT 97
[2022-11-12] MEDS: Lisinopril 40 MG Tablet PO (09:17)
[2022-11-12] MEDS: hydroCHLOROthiazide 25 MG Tablet PO (09:17)
[2022-11-12] MEDS: amLODIPine 10 MG Tablet PO (09:17)
--- NOTE | 2022-11-12 12:15 | NURSING ---
Call placed to printing estimator for ETA of midline placement. Call center stated they would reach out to the nurse and call back with a time.
[2022-11-12 15:15] VITALS: BP 116/70; PULSE 79; RESP 18; TEMP 36.8; O2SAT 98
--- NOTE | 2022-11-12 16:22 | PCM.PN.SRG ---
Subjective Subjective patient awaiting surgery - scheduled for tomorrow late morning pain under better control Objective Data Objective Data Vital Signs: Vital Signs Temp Pulse Resp BP Pulse Ox O2 Del Method 98.3 F 79 18 116/70 98 Room Air 11/12/22 15:15 11/12/22 15:15 11/12/22 15:15 11/12/22 15:15 11/12/22 15:15 11/12/22 15:15 Oxygen Delivery Method Room Air Weight: 105.5 kg Body Mass Index (BMI) 31.5 Intake & Output: Intake and Output for Last 24 Hours 11/10/22 11/11/22 11/12/22 23:59 23:59 23:59 Intake Total 1291.25 / 1291.25 970.00 / 970.00 Balance 1291.25 / 1291.25 970.00 / 970.00 Lab / Micro Data Attestation: I reviewed the patient's lab results. Result Diagrams: 11/12/22 06:35 11/12/22 06:35 Labs: Laboratory Results - last 24 hr 11/12/22 06:35: WBC 10.3, RBC 4.89, Hgb 14.5, Hct 42.9, MCV 87.7, MCH 29.7, MCHC 33.8, RDW Std Deviation 42.4, RDW Coeff of Caprice 13.1, Plt Count 222, MPV 10.8, Immature Gran % (Auto) 0.200, Neut % (Auto) 64.3, Lymph % (Auto) 20.8, [place] % (Auto) 12.5 H, Eos % (Auto) 1.9, Baso % (Auto) 0.3, Absolute Neuts (auto) 6.6, Absolute Lymphs (auto) 2.14, Nucleated RBC % 0 11/12/22 06:35: Sodium 134 L, Potassium 3.7, Chloride 101, Carbon Dioxide 27.0, Anion Gap 6, BUN 17, Creatinine 1.13, Estim Creat Clear Calc 98.24, Est GFR (MDRD) Af Amer 94, Est GFR (MDRD) Non-Af 77, BUN/Creatinine Ratio 15.0, Glucose 100, Calcium 8.6, Phosphorus 3.5, Magnesium 2.0 Radiography Diagnostic Testing: Radiology Impression Renal Artery Duplex 11/11/22 18:16 Interpretation Summary Maximal aortic diameter is proximally at 2.01 x 2.01 cm in diameter which is normal. Normal aortic flow velocities. Less than 60% stenosis bilateral renal arteries Maintained right renal length of 11.8 cm Maintained left renal length of 10.25 cm Normal bilateral renal resistive indices suggesting normal parenchymal function Ordering Physician: Bharti Cruz Referring Physician: N/A Performed By: Zach Tomas RVT Physical Exam Const alert and oriented x3 General Appearance: cooperative HEENT normocephalic Eyes no scleral icterus Neck supple Resp normal respiratory effort Effort and Inspection: able to speak in complete sentences GI GI Narrative: soft and benign Assessment & Plan Assessment/Plan (1) Acute calculous cholecystitis: PLAN: see below PLAN: Plan appreciate Internal Medicine assistance in hypertension management plan for surgery tomorrow, (WBC has normalized) patient has been counseled as to risks/benefits and he agrees to proceed pending outcome of surgery, he may be discharged to home tomorrow or Thursday Patient acknowledges above
--- NOTE | 2022-11-12 17:25 | NURSING ---
This nurse received a call from Dr. Irvin's assistant manager who provided a phone number where Dr. Irvin could be reached. Dr. Cruz notified, and phone number placed on patient's chart per Dr. Cruz's request.
[2022-11-12 21:59] VITALS: BP 135/79; PULSE 93; RESP 18; TEMP 37.3; O2SAT 94
[2022-11-12] MEDS: Dextrose 5%/0.9% NaCl 1,000 ML 75 ML IV (22:06)
[2022-11-12 22:07] VITALS: BP 135/79; PULSE 93
[2022-11-12] MEDS: hydrALAZINE 25 MG Tablet PO (22:07)
--- NOTE | 2022-11-12 23:20 | NURSING ---
pt refusing to have tele reapplied after CHG bath. explained the importance of monitoring HR, due to his hx of elevated BP this admission. pt acknowledged and still declined
[2022-11-13] VITALS (13 sets, daily range): BP systolic 110–161; BP diastolic 67–102; PULSE 67–118; RESP 16–18; TEMP 36.7–36.9; O2SAT 91–100; BMI 31.1
[2022-11-13] MEDS: HYDROmorphone 0.5 MG/0.5 ML SYRINGE IV ×4 (04:56→19:20)
[2022-11-13] MEDS: Ketorolac 30 MG/ML Syringe IV ×3 (04:56→23:57)
[2022-11-13] MEDS: Lactated Ringers 1,000 ML 15 ML IV (09:30)
--- NOTE | 2022-11-13 10:17 | PN.HOSP_ITS ---
Reason for Visit Reason for Visit: Diagnoses Essential (primary) hypertension (11/11/22) Calculus of gallbladder with acute cholecystitis without obstruction (11/11/22) Subjective Subjective Follow-up for lap marley. Objective Data Objective Data Vital Signs: Vital Signs Temp Pulse Resp BP Pulse Ox O2 Del Method 98.2 F 67 18 110/67 99 Room Air 11/13/22 08:43 11/13/22 08:43 11/13/22 08:43 11/13/22 08:43 11/13/22 08:43 11/13/22 08:43 Oxygen Delivery Method Room Air Weight: 230 lb Body Mass Index (BMI) 31.1 Intake & Output: Intake and Output for Last 24 Hours 11/11/22 11/12/22 11/13/22 23:59 23:59 23:59 Intake Total 1291.25 / 1291.25 1523.75 / 1523.75 316.25 / 316.25 Balance 1291.25 / 1291.25 1523.75 / 1523.75 316.25 / 316.25 Lab / Micro Data Result Diagrams: 11/12/22 06:35 11/12/22 06:35 Radiography Diagnostic Testing: Radiology Impression Renal Artery Duplex 11/11/22 18:16 Interpretation Summary Maximal aortic diameter is proximally at 2.01 x 2.01 cm in diameter which is normal. Normal aortic flow velocities. Less than 60% stenosis bilateral renal arteries Maintained right renal length of 11.8 cm Maintained left renal length of 10.25 cm Normal bilateral renal resistive indices suggesting normal parenchymal function Ordering Physician: Bharti Cruz Referring Physician: N/A Performed By: Zach Tomas RVT Chest CTA 11/11/22 19:33 IMPRESSION: 1. Normal thoracic aorta. There is no evidence of stenosis of the great vessels. The bilateral subclavian and axillary arteries are normal diameter in appearance. 2. No evidence of pulmonary embolus. 3. No acute cardiopulmonary disease. Electronically Signed: Alban Rosario DO at 17:04 EDT Reading Location ID and State: [address] [place] [address] Tel [phone], Service support , Physical Exam Narrative Seen and examined. Blood pressure is 149/102. Heart rate 102 after surgery. Patient feels pain whole abdomen and standing up and trying to stretch to get relief. No fever. Voided urine after surgery Patient denies prior history of pancreatitis but had similar right upper quadrant pain in group home couple years ago. Denies chronic alcohol use. Physical exam General: Alert, Oriented x3, Cooperative HEENT: Atraumatic, PERRLA, EOMI, Normocephalic Oral: Oral mucosa moist. No Gingival or Mucosal Lesions/ Ulcerations Neck: Supple, No JVD, Negative Carotid Bruits Lungs: Air entry diminished in bilateral lung bases. No crepitation/rhonchi Cardiovascular: Regular rate, Regular Rhythm, Normal S1, Normal S2, No murmurs Abdomen: Lap marley ports dressing dry. Bowel Sounds sluggish. Soft, Non Tender, Non-Distended : No renal angle tenderness. No suprapubic tenderness. Extremities: No edema, Capillary Refill Less than 3 Seconds Skin: No rashes, No breakdown Musculoskeletal: No Tenderness to Palpation of Joints or Extremities Neurological: Cranial nerves II-XII grossly intact, DTR 2+/4 and Symmetrical, Neuro grossly intact Psych/Mental Status: Flat affect. Assessment & Plan Assessment/Plan (1) HTN (hypertension): PLAN: Plan Hypertension: Blood pressure systolic 130s. On amlodipine 10 mg daily, lisinopril 40 mg daily and HCTZ 25 mg daily. As needed hydralazine IV and labetalol. TSH and cortisol normal. 2D echo EF 60% stage I diastolic dysfunction with structurally normal valves suggestive of mild HFpEF. Overall hypertensin with elevated BP mainly due to nonadherence to medications. Renal artery duplex shows less than 60% stenosis bilateral renal arteries. 11/13 BP elevated because he did not get morning dose of antihypertensive medication. Lisinopril 40 mg, resume first dose now. HCTZ from tomorrow AM. Acute calculus cholecystitis Patient had lap marley 11/13/2022. Operative note reviewed. No acute Intra-Op complications. Discussed with patient's mom present in the room. 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 Left ventricular systolic function is normal. The estimated ejection fraction is 60 %. Stage 1 diastolic dysfunction. Structurally normal valves. Renal Artery Duplex 11/11/22 18:16 Interpretation Summary Maximal aortic diameter is proximally at 2.01 x 2.01 cm in diameter which is normal. Normal aortic flow velocities. Less than 60% stenosis bilateral renal arteries Maintained right renal length of 11.8 cm Maintained left renal length of 10.25 cm Normal bilateral renal resistive indices suggesting normal parenchymal function Charges/Coding Visit Charges Inpatient E&M: 92004 Subs Hosp L2
--- NOTE | 2022-11-13 10:30 | GALL_PTH ---
PATIENT: EUSEBIA HAMILTON LOC: MS3 U#:[id number] AGE/SX: 37/M ROOM: IN318 RE11/11/[address]: Dr. Stone Rosenthal MD : 1985 BED: 1 DIS: 11/14/2022 SPEC #: [id number] RECD: 11/13/22 13:00 STATUS: MARY REAngel #: [id number] TYREE: 11/13/22 10:[address]: Stone Rosenthal DEPT: SURGICAL PATHOLOGY RECD BY: Carmen Chacon ENTERED: 11/13/22 13:30 SP TYPE: MARTHA MCCARTHY DR: DO Dr. Vincenzo Mendenhall MD No Primary Care Phys Tissues: Gallbladder, NOS Procedures: Surgery Specimen Level III HEADER OPERATION: Laparoscopic cholecystectomy PRE-OP DIAGNOSIS: Acute calculus cholecystitis TISSUE SUBMITTED: Gallbladder MICROSCOPIC DIAGNOSIS Gallbladder, cholecystectomy: Acute and chronic ulcerated and hemorrhagic cholecystitis and cholelithiasis. JAMMIE:carlos manuel 11/14/2022 MICROSCOPIC DESCRIPTION Slides are reviewed. GROSS DESCRIPTION Received is one container labeled with the patient's name and designated gallbladder. The specimen consists of a gallbladder measuring 9.0 cm in length and up to 4.0 cm in diameter. The gallbladder is previously, partially opened. The external surface is pink-raymundo, smooth and glistening for the most part. Focally it is granular, hemorrhagic and contains cautery artifact. The gallbladder contains hemorrhagic bile and multiple, multifaceted yellowish-brown stones and stone fragments measuring in aggregate 3.5 x 3.5 x 1.5 cm and 1.0 to 1.2 cm in greatest dimension. The mucosa is congested and hemorrhagic. The gallbladder wall measures up to 0.3 cm in thickness. [employer] sections from the gallbladder and the cystic duct are submitted in one cassette. / JAMMIE:carlos manuel 11/13/2022 TC:2 CPT: 31682
--- NOTE | 2022-11-13 10:36 | PCM.OPRPT ---
Report of Operation Date of Procedure: 11/13/22 Pre-Operative Diagnosis: acute calculus cholecystitis Post-Operative Diagnosis: same Surgery/Procedure Performed:: laparoscopic cholecystectomy Surgeon: Bharti Cruz claims configuration analyst: Clari Mcintosh Anesthesiologist: Shasha Montalvo Specimen's removed: gallbladder and contents Estimated Blood Loss (mL): 25 ml Fluids Replaced: 1300 ml RL Description of Procedure: After informed consent was given, the patient was brought to the Operating Room. Appropriate time out protocol was followed. The patient was placed in the supine position. The patient was then placed under general endotracheal anesthesia by the anesthesia provider. The abdomen was then prepped with a sterile surgical skin preparation and sterile surgical drapes were placed. An area superior to the umbilical dimple was grasped with penetrating clamps and the skin and subcutaneous tissues were infiltrated with 0.25% marcaine with epinephrine. A skin incision was then made with a 15 blade scalpel. The anterior abdominal wall was elevated and a Veress needle was carefully inserted into the intraabdominal cavity. It was checked to be in the proper position with a normal saline drop test. A CO2 pneumoperitoneum was then created. Once this was achieved, then the Veress needle was removed and an 11mm trocar was placed in its stead. A 10mm laparoscope was then inserted into the trocar and careful attention was directed to the intraabdominal contents. There was no evidence of injury to any intraabdominal organs from insertion of the Veress needle or the trocar. Under direct visualization, a 5mm subxiphoid trocar and two lateral 5mm right subcostal trocars were placed. The skin and subcutaneous tissues at these sites were infiltrated with 0.25% marcaine with epinephrine prior to placement of these trocars. Attention was then directed to the right upper quadrant of the abdomen. There were omental adhesions to the free surface of the gallbladder. The gallbladder wall was edematous and thickened. There were surrounding inflammatory changes and surrounding inflammatory fluid. The adhesions were removed by blunt dissection, any hemorrhage was controlled with electrocautery. Graspers were placed in the lateral trocars to grasp the distal aspect of the gallbladder and direct it cephalad and to grasp the gallbladder at Horvath?s pouch and direct it laterally. Dissection then began on the proximal gallbladder continuing down to the area of the triangle of Calot to bluntly dissect out the cystic duct. The neck of the gallbladder was identified and blunt dissection continued to dissect out a segment of the cystic duct. A clip was placed across the neck of the gallbladder. Two clips were placed proximally. The cystic duct was then transected between the proximal and distal clips. The cystic artery was visualized and bluntly isolated and then two clips were placed proximally and one clip distally and then it was transected between the proximal and distal clips. The gallbladder was then from the liver bed using electrocautery. This took some time due to inflammation and inflammatory bleeding of the gallbladder wall. Once from the liver bed, it was placed in an Endobag and then brought out via the umbilical port. It was then forwarded to pathology for analysis. The liver bed was carefully examined. Vigorous lavage irrigation and aspiration of fluid was done. There was no evidence of bile leakage or bleeding. The cystic duct stump and cystic artery stump had their clips intact and there was no evidence of bile leakage or bleeding. The remainder of the abdomen was grossly normal. The CO2 was released and all trocars removed intact. The periumbilical fascia was approximated with a [id number] 0 vicryl suture. All skin incision were closed with 4-0 monocryl in a subdermal fashion. Cavilol and Steristrips were used to reinforce the skin closure. Sterile dressings were applied to all wounds. Sponge, needle and instrument count was verified and correct at time of skin closure. The patient was extubated and brought to the Recovery Room in stable condition. Procedure Start Time: 10:49 Procedure Stop Time: 12:00 Complications none noted Admit VTE Documentation VTE Present on Admission: Yes VTE Mechan Device Prophylaxis: SCD's
[2022-11-13] MEDS: Bupiv/Epi 0.25% 30 ML Vial (11:58)
--- NOTE | 2022-11-13 14:24 | DCINST_ITS ---
Discharge Instructions Diet Discharge Diet: No restrictions (avoid carbonated beverages for a few days, drink plenty of fluids) and - Activity Discharge Activity: Return to Normal Activity (no lifting greater than 20 pounds for two weeks) Additional Activity Instructions:: May shower no tub baths/swimming Dressing / Incision Call your doctor if your incision/area has: Continuous Slow Oozing and Foul Smelling Discharge Follow Up Care Test Results: Test results from this visit will be discussed in further detail at your follow- up appointment, if applicable. Discharge Plan Admission Admit Date/Time: 11/11/22 02:00 Primary Reason for Your Visit: acute cholecystitis Attending Provider: Stone Rosenthal Primary Care Provider: Care Physician,No Primary Consulting Providers: Vincenzo Shah ; Annel Denson Instructions Additional Instructions / Restrictions: Recommended pain control regimen - May take 600 mg ibuprofen (Motrin) and then in 3-4 hours, may take 650 mg acetaminophen (Tylenol), then in 3-4 hours may take 600 mg ibuprofen, then in 3- 4 hours may take 650 mg acetaminophen and so on for 2-3 days May take narcotic pain medication for pain that is not controlled by above and at night for comfort through the night Leave dressings in place May shower, do not scrub in the areas of the dressings as they may unravel. If they become overly soiled you may remove them but leave incision site open to air. May take shower, cover drain site with towel or other such covering to prevent from getting overly wet Do not soak - no tub baths/swimming Ice applied to areas of discomfort may help No lifting/pushing/pulling greater than 20 pounds for two weeks. Regular diet as tolerated, drink plenty of fluids. Avoid carbonated beverages for a few days as this will cause abdominal bloating and thus discomfort after our surgery. Please call my office for an appointment to see me in 1-2 weeks. Office number is If any questions, please call my office at and ask the crimper operator for the general surgery nurses desk Discharge Orders/Prescriptions Prescriptions: New hydrocodone-acetaminophen 5-325 mg tablet 1 tab PO Q8H 5 Days Qty: 15 0RF No Action lisinopril 40 mg tablet 40 mg PO DAILY Referrals / Follow Up: Care Physician,No Primary [Primary Care Provider] -
[2022-11-13] MEDS: Lisinopril 40 MG Tablet PO (15:58)
[2022-11-13] MEDS: 0.9% Saline Lock 10 ML Syringe IV ×2 (19:21→23:58)
[2022-11-13] MEDS: hydrALAZINE 25 MG Tablet PO (20:49)
[2022-11-13] MEDS: oxyCODONE 5 MG Tablet 10 MG PO (20:49)
[2022-11-13] MEDS: Acetaminophen 325 MG Tablet 650 MG PO (20:49)
[2022-11-14 00:07] VITALS: BP 131/75; PULSE 80; RESP 18; TEMP 36.9; O2SAT 99
[2022-11-14 05:35] VITALS: BP 117/78; PULSE 69; RESP 16; TEMP 36.7; O2SAT 98
[2022-11-14] MEDS: oxyCODONE 5 MG Tablet 10 MG PO ×2 (05:40→14:16)
[2022-11-14] MEDS: Ketorolac 30 MG/ML Syringe IV ×2 (05:40→12:25)
[2022-11-14 06:37] LABS: Absolute Lymphocyte Count 1.27 X10^3/uL (0.83-4.51); Absolute Neutrophil Count 7.2 X10^3/uL (2.0-7.7); Basophil# 0.01 X10^3/uL; Basophil% 0.1 % (0-1); Eosinophil# 0.01 X10^3/uL; Eosinophils% 0.1 % (0-5); Hemoglobin 11.2 g/dL (13.0-16.5); Lymphocyte # 1.27 X10^3/ul (0.83-4.51); Lymphocyte % 13.7 % (19-41); Mean Corp Hgb Conc 33.9 g/dL (32-36); Mean Corpuscular Hgb 29.9 pg (27.0-32.0); Mean Platelet Vol. 10.9 fl (6.2-12.0); Monocyte# 0.76 X10^3/uL; Monocyte% 8.2 % (0-10); NRBC Flagged by Analyzer 0 % (0-5); Neutrophil # 7.19 X10^3/uL (2.7-7.7); Neutrophil % 77.5 % (47-70); Platelet Count 216 K/mm3 (150-450); RBC Distribution Width CV 12.3 % (11.6-14.6); RBC Distribution Width SD 39.9 fl (35.1-43.9); Red Blood Count 3.75 M/mm3 (4.6-6.2); White Blood Count 9.3 K/mm3 (4.4-11.0)
[2022-11-14 07:16] LABS: Anion Gap 6 (5-15); BUN 16 mg/dL (7-18); BUN/Creat Ratio 22.2 RATIO (10-20); Calcium,Total 7.2 mg/dL (8.5-10.1); Chloride 111 mmol/L (98-107); Creatinine, Serum 0.72 mg/dL (0.70-1.30); EST Glomerular Filtration Rate 130 mL/min (>60); Est Glom Filt Rate - Afr Amer 157 mL/min (>60); Estimated Creatinine Clearance 154.18 ml/min; Glucose 94 mg/dL (74-106); Potassium 3.1 mmol/L (3.5-5.1); Sodium Level 141 mmol/L (136-145)
[2022-11-14] MEDS: amLODIPine 10 MG Tablet PO (09:08)
[2022-11-14] MEDS: hydroCHLOROthiazide 25 MG Tablet PO (09:08)
[2022-11-14] MEDS: Lisinopril 40 MG Tablet PO (09:12)
[2022-11-14 10:38] VITALS: BP 128/85; PULSE 63; RESP 17; TEMP 36.7; O2SAT 96
--- NOTE | 2022-11-14 13:34 | PCM.PN.HOSP ---
Reason for Visit Reason for Visit: Diagnoses Other acute postprocedural pain (11/11/22) Essential (primary) hypertension (11/11/22) Calculus of gallbladder with acute cholecystitis without obstruction (11/11/22) Subjective Subjective Follow-up with your lap marley on 11/13. Patient blood pressure is well controlled. No acute symptoms. Patient is passing flatus. Had bowel movement on past Thursday, 11/12. Objective Data Objective Data Vital Signs: Vital Signs Temp Pulse Resp BP Pulse Ox O2 Del Method O2 Flow Rate 98.0 F 63 17 128/85 H 96 Room Air 6 11/14/22 10:38 11/14/22 10:38 11/14/22 10:38 11/14/22 10:38 11/14/22 10:38 11/14/22 10:38 11/13/22 12:15 Oxygen Flow Rate (L/min) 6 Oxygen Delivery Method Room Air Weight: 230 lb Body Mass Index (BMI) 31.1 Intake & Output: Intake and Output for Last 24 Hours 11/12/22 11/13/22 11/14/22 23:59 23:59 23:59 Intake Total 1523.75 / 1523.75 666.25 / 666.25 1100 / 1100 Balance 1523.75 / 1523.75 666.25 / 666.25 1100 / 1100 Lab / Micro Data Result Diagrams: 11/14/22 06:00 11/14/22 06:00 Labs: Laboratory Results - last 24 hr 11/14/22 06:00: WBC 9.3, RBC 3.75 L, Hgb 11.2 L, Hct 33.0 L, MCV 88.0, MCH 29.9, MCHC 33.9, RDW Std Deviation 39.9, RDW Coeff of Caprice 12.3, Plt Count 216, MPV 10.9, Immature Gran % (Auto) 0.400, Neut % (Auto) 77.5 H, Lymph % (Auto) 13.7 L, [place] % (Auto) 8.2, Eos % (Auto) 0.1, Baso % (Auto) 0.1, Absolute Neuts (auto) 7.2, Absolute Lymphs (auto) 1.27, Nucleated RBC % 0 11/14/22 06:00: Sodium 141, Potassium 3.1 L, Chloride 111 H, Carbon Dioxide 24.0, Anion Gap 6, BUN 16, Creatinine 0.72, Estim Creat Clear Calc 154.18, Est GFR (MDRD) Af Amer 157, Est GFR (MDRD) Non-Af 130, BUN/Creatinine Ratio 22.2 H, Glucose 94, Calcium 7.2 L Physical Exam Narrative Seen and examined. Blood pressure and heart rate is controlled. Patient passing flatus. Physical exam General: Alert, Oriented x3, Cooperative HEENT: Atraumatic, PERRLA, EOMI, Normocephalic Oral: Oral mucosa moist. No Gingival or Mucosal Lesions/ Ulcerations Neck: Supple, No JVD, Negative Carotid Bruits Lungs: Air entry diminished in bilateral lung bases. No crepitation/rhonchi Cardiovascular: Regular rate, Regular Rhythm, Normal S1, Normal S2, No murmurs Abdomen: Lap marley ports dressing dry. Bowel Sounds sluggish. Soft, Non Tender, Non-Distended : No renal angle tenderness. No suprapubic tenderness. Extremities: No edema, Capillary Refill Less than 3 Seconds Skin: No rashes, No breakdown Musculoskeletal: No Tenderness to Palpation of Joints or Extremities Neurological: Cranial nerves II-XII grossly intact, DTR 2+/4 and Symmetrical, Neuro grossly intact Psych/Mental Status: Flat affect. Assessment & Plan Assessment/Plan (1) HTN (hypertension): PLAN: Plan Hypertension: Blood pressure systolic 130s. On amlodipine 10 mg daily, lisinopril 40 mg daily and HCTZ 25 mg daily. As needed hydralazine IV and labetalol. TSH and cortisol normal. 2D echo EF 60% stage I diastolic dysfunction with structurally normal valves suggestive of mild HFpEF. Overall hypertensin with elevated BP mainly due to nonadherence to medications. Renal artery duplex shows less than 60% stenosis bilateral renal arteries. 11/13 BP elevated because he did not get morning dose of antihypertensive medication. Lisinopril 40 mg, resume first dose now. HCTZ from tomorrow AM. 11/14: Blood pressure is good. Antihypertensive medications resumed. Patient can be discharged home. Mild hypokalemia, K-Dur 40 mEq every 3 hourly first dose now; ordered. Acute calculus cholecystitis Patient had lap marley 11/13/2022. Operative note reviewed. No acute Intra-Op complications. Discussed with patient's mom present in the room. 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 Left ventricular systolic function is normal. The estimated ejection fraction is 60 %. Stage 1 diastolic dysfunction. Structurally normal valves. Renal Artery Duplex 11/11/22 18:16 Interpretation Summary Maximal aortic diameter is proximally at 2.01 x 2.01 cm in diameter which is normal. Normal aortic flow velocities. Less than 60% stenosis bilateral renal arteries Maintained right renal length of 11.8 cm Maintained left renal length of 10.25 cm Normal bilateral renal resistive indices suggesting normal parenchymal function Charges/Coding Visit Charges Inpatient E&M: 41197 Subs Hosp L2
[2022-11-14] MEDS: Potassium Chloride Oral Tablet 20 MEQ 40 MEQ PO (14:16)
[2022-11-14 14:38] VITALS: BP 140/87; PULSE 99; RESP 17; TEMP 36.8; O2SAT 96
--- NOTE | 2022-11-14 16:27 | PCM.PN.SRG ---
Subjective Subjective patient doing well, tolerating liquids, able to void Objective Data Objective Data Vital Signs: Vital Signs Temp Pulse Resp BP Pulse Ox O2 Del Method O2 Flow Rate 98.3 F 99 17 140/87 H 96 Room Air 6 11/14/22 14:38 11/14/22 14:38 11/14/22 14:38 11/14/22 14:38 11/14/22 14:38 11/14/22 14:38 11/13/22 12:15 Oxygen Flow Rate (L/min) 6 Oxygen Delivery Method Room Air Weight: 104.326 kg Body Mass Index (BMI) 31.1 Intake & Output: Intake and Output for Last 24 Hours 11/12/22 11/13/22 11/14/22 23:59 23:59 23:59 Intake Total 1523.75 / 1523.75 666.25 / 666.25 1100 / 1100 Balance 1523.75 / 1523.75 666.25 / 666.25 1100 / 1100 Lab / Micro Data Attestation: I reviewed the patient's lab results. Result Diagrams: 11/14/22 06:00 11/14/22 06:00 Labs: Laboratory Results - last 24 hr 11/14/22 06:00: WBC 9.3, RBC 3.75 L, Hgb 11.2 L, Hct 33.0 L, MCV 88.0, MCH 29.9, MCHC 33.9, RDW Std Deviation 39.9, RDW Coeff of Caprice 12.3, Plt Count 216, MPV 10.9, Immature Gran % (Auto) 0.400, Neut % (Auto) 77.5 H, Lymph % (Auto) 13.7 L, [place] % (Auto) 8.2, Eos % (Auto) 0.1, Baso % (Auto) 0.1, Absolute Neuts (auto) 7.2, Absolute Lymphs (auto) 1.27, Nucleated RBC % 0 11/14/22 06:00: Sodium 141, Potassium 3.1 L, Chloride 111 H, Carbon Dioxide 24.0, Anion Gap 6, BUN 16, Creatinine 0.72, Estim Creat Clear Calc 154.18, Est GFR (MDRD) Af Amer 157, Est GFR (MDRD) Non-Af 130, BUN/Creatinine Ratio 22.2 H, Glucose 94, Calcium 7.2 L Physical Exam Const alert and oriented x3 General Appearance: cooperative Neck supple Resp normal respiratory effort Effort and Inspection: able to speak in complete sentences GI GI Narrative: soft and benign, dressing intact Assessment & Plan Assessment/Plan (1) Acute calculous cholecystitis: PLAN: POD#1 s/p laparoscopic cholecystectomy d/c to home PLAN: Plan see above
--- NOTE | 2022-11-14 16:29 | PCM.DC.BLA ---
Discharge Summary Date of Admission: 11/11/22 Date of Discharge: 11/14/22 Summary: Patient presents with acute calculous cholecystitis. Has hypertension - internal medicine consultation obtained. Workup included ECHO and renal ultrasound. Underwent surgery - laparoscopic choelcystectomy on 11.13.2022. D/c'd to home next day. Meaningful Use Info Meaningful Use Diagnoses (Choose all that apply): None applicable Discharge Plan Admission Admit Date/Time: 11/11/22 02:00 Primary Reason for Your Visit: acute cholecystitis Attending Provider: Stone Rosenthal Primary Care Provider: Care Physician,No Primary Consulting Providers: Vincenzo Shah ; Annel Denson Instructions Additional Instructions / Restrictions: Recommended pain control regimen - May take 600 mg ibuprofen (Motrin) and then in 3-4 hours, may take 650 mg acetaminophen (Tylenol), then in 3-4 hours may take 600 mg ibuprofen, then in 3-4 hours may take 650 mg acetaminophen and so on for 2-3 days May take narcotic pain medication for pain that is not controlled by above and at night for comfort through the night Leave dressings in place May shower, do not scrub in the areas of the dressings as they may unravel. If they become overly soiled you may remove them but leave incision site open to air. May take shower, cover drain site with towel or other such covering to prevent from getting overly wet Do not soak - no tub baths/swimming Ice applied to areas of discomfort may help No lifting/pushing/pulling greater than 20 pounds for two weeks. Regular diet as tolerated, drink plenty of fluids. Avoid carbonated beverages for a few days as this will cause abdominal bloating and thus discomfort after our surgery. Please call my office for an appointment to see me in 1-2 weeks. Office number is If any questions, please call my office at and ask the coiler operator for the general surgery nurses desk Discharge Orders/Prescriptions Prescriptions: New hydrocodone-acetaminophen 5-325 mg tablet 1 tab PO Q8H 5 Days Qty: 15 0RF No Action lisinopril 40 mg tablet 40 mg PO DAILY Referrals / Follow Up: Care Physician,No Primary [Primary Care Provider] - Disposition Discharge Orders: Discharge Patient (Routine); Ordered 11/14/22 Ordered By: Dr. Bharti Cruz
--- NOTE | 2022-11-14 17:43 | NURSING ---
pt will be handing over prescribed narcotics to sponsor upon discharge before going to 180.
--- NOTE | 2022-11-14 17:59 | NURSING ---
Talked to pt multiple times about returning narcotics prior to discharge, not receptive and was unwilling. Upon DC this nurse watched the pt hand over his narcotics to his sponsor before exiting the floor.
== END 2022-11-14 17:58 | disposition home or self-care (01) ==
LOC: ED 11-11 01:58 → MS3 11-11 02:32
PROVIDERS: Internal Medicine; Surgery; Admitting Provider Surgery; Emergency Provider Emergency Medicine; Visit Provider Surgery
DX: K80.00 Calculus of gallbladder with acute cholecystitis without obstruction (principal); F11.11 Opioid abuse, in remission; F15.11 Other stimulant abuse, in remission; F17.210 Nicotine dependence, cigarettes, uncomplicated; I10 Essential (primary) hypertension; Z79.899 Other long term (current) drug therapy
CPT/HCPCS: 47562; 00790; 36415; 71275; 76705; 80048; 80053; 81001; 82533; 83690; 83735; 84100; 84443; 85025; 88304; 93005; 93306; 93975; 96361; 96365; 96366; 96375; 96376; 99221; 99284; 99406; J7120; Q9967; A4216; G0378; J2405

== ENCOUNTER 2023-03-01 15:46 | Emergency (ER) | payer MEDICAID, SELFPAY ==
[2023-03-01 15:47] VITALS: BP 146/78; PULSE 78; RESP 16; TEMP 36.6; O2SAT 98
[2023-03-01 15:55] VITALS: BMI 32.6
--- NOTE | 2023-03-01 16:08 | EX.ED.DYSGE1 ---
HPI History of Present Illness Chief Complaint: Ear Problem Narrative Narrative: Patient is a 38-year-old male who is presenting to the ER with chief complaint of sinus symptoms going on for the past 3 weeks. Patient attempted go to an urgent care today, they are closed we came to the ER. Patient does not have established PCP. Patient currently has no headache. Patient has been having intermittent left ear pain for the past couple weeks, patient has some left ear drainage last evening, minimal amount, no other drainage when he woke up this morning or today. No bloody drainage. Patient currently has no headache. Mild maxillary pressure, mild sore throat, intermittent dry cough. Patient has no myalgia, no arthralgia. Patient has intermittently been taking cold and cough and congestion medication at work, but nothing consistently. Patient has no abdominal pain, nausea or vomiting. No rash, no other acute complaints [facility]SH [facility] Medical History (Updated 03/01/23 @ 16:[address] Jeremie Curry DO) History of heroin abuse History of methamphetamine abuse History of tobacco abuse Hypertension Home Medications lisinopril 40 mg tablet 40 mg PO DAILY 11/10/22 [History Last Taken Unknown] hydrocodone-acetaminophen 5-325mg 5mg-325mg 1 tab PO Q8H 5 days #15 tabs 11/13/22 [Rx Last Taken Unknown] amoxicillin 875 mg-potassium clavulanate 125 mg tablet 1 tab PO Q12H #20 tabs 03/01/23 [Rx Last Taken Unknown] Allergy/AdvReac Type Severity Reaction Status Date / Time No Known Allergies Allergy Verified 11/10/22 22:39 Family History (Updated 11/11/22 @ 11:[address] Annel Denson DO) Other CAD (coronary artery disease) Heart disease Social History (Updated 11/11/22 @ 11:[address] Annel Denson DO) Smoking Status: Former smoker alcohol intake: never substance use type: former substance user Date of last use: 26 months ago (heroin/methamphetamines) ROS ROS ED ROS Narrative REVIEW OF SYSTEMS: Unless otherwise stated in this report the patient's positive and negative responses for review of systems for constitutional, eyes, ENT, cardiovascular, respiratory, gastrointestinal, neurological, , musculoskeletal, and integument systems and related systems to the presenting problem are either stated in the history of present illness or were not pertinent or were negative for the symptoms and/or complaints related to the presenting medical problem. EXAM Physical Exam Narrative Exam Narrative: Vital signs reviewed and patient is not hypoxic. General: The patient appears well and in no apparent distress. Patient is resting comfortably on cart. Not toxic, lethargic, or listless. Patient's friend is at bedside, or a lot of talk about everything in front of his friend at bedside who also drove him to the ER. Skin: Warm, dry, no pallor noted. There is no rash noted. Multiple tattoos. No secondary signs of infection. Head: Normocephalic, atraumatic. Currently has no acute tenderness to palpation to bilateral frontal and maxillary sinuses. Eye: Normal conjunctiva, no drainage, EOMI. PERRL. Ears, Nose, Mouth, and Throat: oral mucosa is moist. Nares patent. Mouth without vesicles. Patient has no bilateral TM perforation, erythema bulging. Patient does have a few air-fluid levels noted behind TM on the left. No perforation noted. He has no drainage noted to left ear canal. No tenderness to palpation to bilateral outer ears. Clear/yellow drainage noted to the posterior pharynx. No other intraoral pathology. Cardiovascular: Regular Rate and Rhythm, no murmurs, gallops, or rubs Respiratory: Patient is in no distress, no accessory muscle use, lungs are clear to auscultation, no wheezing, rales or rhonchi Back: non-tender, GI: Soft, no tenderness Musculoskeletal: The patient has full range of motion of all extremities and joints with no difficulty. Patient has no motor, no sensory deficits. Neurological: A&O x4, normal speech, no focal neurological deficits. Psychiatric: Cooperative Const Vital Signs: 03/01/23 15:47 Temperature 97.8 F Temperature Source Temporal Pulse Rate 78 Respiratory Rate 16 Blood Pressure 146/78 H Blood Pressure Mean 100 Pulse Ox 98 Oxygen Delivery Method Room Air MDM MDM MDM Narrative Medical decision making narrative: Education was done at bedside and patient having consistent [id number] treatment for his symptoms. Patient will use daily DayQuil, NyQuil and Flonase. Anti-inflammatories, Mucinex, and increase fluids. Because symptoms have been going on for more than 3 weeks, patient replaced on antibiotics well. Patient understands the importance of the [id number] treatment versus not just doing antibiotic. Patient will establish PCP or health department. Patient very pleasant, thankful for help. Patient looks well. All signs within normal limits, slightly hypertensive, patient does take lisinopril daily. 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 Patient does not need a work note. No vertigo, no headache, no vision changes, no other acute complaints. Discharge Plan Triage Chief Complaint: Ear Problem ED Provider: Jeremie Curry Dx/Rx/DC Orders Clinical Impression: Acute maxillary sinusitis, URI (upper respiratory infection), Acute pain of left ear, Acute sore throat Instructions: When You Have a Sore Throat, Adult Self-Care for Colds, ED Pain, Acute, Uncertain Cause, ED Sinusitis (Antibiotic Treatment) Prescriptions: New amoxicillin-pot clavulanate 875-125 mg tablet 1 tab PO Q12H Qty: 20 0RF No Action lisinopril 40 mg tablet 40 mg PO DAILY hydrocodone-acetaminophen 5-325 mg tablet 1 tab PO Q8H 5 Days Qty: 15 0RF Primary Care Provider: Care Physician,No Primary Referrals: Care Physician,No Primary [Primary Care Provider] - Activity Restrictions/Additional Instructions: Use [id number] DayQuil, NyQuil and Flonase daily for the next 10 to 14 days. Use anti-inflammatories daily to help with inflammation and any type of pain. Use Tylenol as needed as well. Take anti-inflammatories and antibiotics with food or drink. Establish PCP, follow-up with PCP or urgent care as needed. Disposition Disposition: Home, Self Care
== END 2023-03-01 17:07 | disposition home or self-care (01) ==
PROVIDERS: Emergency Provider Emergency Medicine; Visit Provider Emergency Medicine
DX: J01.00 Acute maxillary sinusitis, unspecified (principal); H92.02 Otalgia, left ear; Z87.891 Personal history of nicotine dependence; I10 Essential (primary) hypertension
CPT/HCPCS: 99282

== ENCOUNTER → 2023-06-25 | Outpatient (CLI) | payer MEDICAID, SELFPAY ==
[2023-06-25 15:14] LABS: Absolute Neutrophil Count 2.7 X10^3/uL (2.0-7.7); Basophil# 0.04 X10^3/uL; Basophil% 0.7 % (0-1); Eosinophil# 0.05 X10^3/uL; Eosinophils% 0.9 % (0-5); Hematocrit 40.1 % (40-54); Hemoglobin 13.4 g/dL (13.0-16.5); Lymphocyte % 35.5 % (19-41); Mean Corp Hgb Conc 33.4 g/dL (32-36); Mean Corpuscular Volume 86.8 fL (80-94); Mean Platelet Vol. 11.7 fl (6.2-12.0); Monocyte# 0.61 X10^3/uL; Monocyte% 11.4 % (0-10); NRBC Flagged by Analyzer 0 % (0-5); Neutrophil # 2.74 X10^3/uL (2.7-7.7); Neutrophil % 51.3 % (47-70); POSITIVE COUNT YES; Platelet Count 164 K/mm3 (150-450); RBC Distribution Width CV 12.6 % (11.6-14.6); RBC Distribution Width SD 39.8 fl (35.1-43.9); Red Blood Count 4.62 M/mm3 (4.6-6.2); White Blood Count 5.4 K/mm3 (4.4-11.0)
[2023-06-25 15:29] LABS: AST(SGOT) 21 U/L (15-37); Alanine Aminotransfer ALT/SGPT 33 U/L (16-61); Albumin, Serum 3.7 g/dL (3.2-5.0); Alkaline Phosphatase 49 U/L (45-117); Anion Gap 6 (5-15); BUN 18 mg/dL (7-18); Calcium,Total 8.6 mg/dL (8.5-10.1); Chloride 107 mmol/L (98-107); Cholesterol 164 mg/dL (200); EST Glomerular Filtration Rate 89 mL/min (>60); Est Glom Filt Rate - Afr Amer 107 mL/min (>60); Globulin 3.6 g/dL (2.2-4.2); Glucose 110 mg/dL (74-106); High Density Lipoprotein 38 mg/dL; Protein, Total 7.3 g/dL (6.4-8.2); Sodium Level 136 mmol/L (136-145); Triglycerides 308 mg/dL; Very Low Density Lipoprotein 62 mg/dL (5-40)
[2023-06-25 15:36] LABS: Differential Comment SCANNED; Differential Indicated SCAN CRITERIA MET
== END | disposition home or self-care (01) ==
LOC: MFPLAB 12:19
PROVIDERS: PCP Family Medicine; Visit Provider Family Medicine
DX: I10 Essential (primary) hypertension (principal)
CPT/HCPCS: 36415; 80053; 80061; 85025

== ENCOUNTER → 2023-11-26 | Outpatient (CLI) | payer MEDICAID, SELFPAY | END | disposition home or self-care (01) | LOC: SL 08:20 | PROVIDERS: PCP Family Medicine; Referring Provider Family Medicine; Visit Provider Family Medicine | DX: G47.10 Hypersomnia, unspecified (principal); Z79.899 Other long term (current) drug therapy | CPT/HCPCS: 95801; 95806 ==

== ENCOUNTER 2023-12-09 20:28 | Emergency (ER) | payer MEDICAID, SELFPAY ==
[2023-12-09 20:30] VITALS: BP 148/97; PULSE 94; RESP 18; TEMP 36.3; O2SAT 100; BMI 29.1
--- NOTE | 2023-12-09 20:46 | US_ITS ---
INDICATION: LT CALF SWELLING EXAMINATION: Ultrasound US Venous Duplex LE Unilat / Limited TECHNIQUE: Torres scale, pulse wave, and color flow Doppler imaging was performed of the extremity venous system. COMPARISON: None. FINDINGS: 5 grayscale ultrasound images of the left lower extremity, as well as proximal right lower extremity, with numerous cinematic series, deep venous structures, which demonstrate good compressibility, good flow by color Doppler, no filling defects, and appropriate response to augmentation maneuvers. US/Venous Duplex Imag/Limited/Uni IMPRESSION: No evidence of left lower extremity DVT or proximal right lower extremity DVT. Electronically Signed: Jasper Mishra MD at 22:53 EDT ,
--- NOTE | 2023-12-09 21:32 | EDS_ITS ---
HPI History of Present Illness Chief Complaint: Lower Extremity Injury Narrative Narrative: 38-year-old male presenting with left lower leg pain. It is in the left anterior tibial region. 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 He is wearing new shoes. He is denies any trauma. He states he is not doing excessive bending, stooping, kneeling. Patient states he went to urgent care today and was referred to the ER. He states he feels like his leg is swollen. He denies numbness or tingling. He has had no skin color changes. [facility] Medical History Arthritis GERD (gastroesophageal reflux disease) Hearing problem Hepatitis History of back problems History of heroin abuse History of methamphetamine abuse History of tobacco abuse Hx of drug abuse Hx of fracture Hypertension Hypertension Vascular disease Home Medications lisinopril 40 mg tablet 40 mg PO DAILY 11/10/22 [History Last Taken Unknown] hydrocodone-acetaminophen 5-325mg 5mg-325mg 1 tab PO Q8H 5 days #15 tabs 11/13/22 [Rx Last Taken Unknown] lisinopril 40 mg tablet 40 mg PO DAILY 11/18/22 [History Last Taken Unknown] amoxicillin 875 mg-potassium clavulanate 125 mg tablet 1 tab PO Q12H #20 tabs 03/01/23 [Rx Last Taken Unknown] naproxen 500 mg tablet (Naprosyn) 500 mg PO BID PRN pain #20 tabs 12/09/23 [Rx Last Taken Unknown] Allergy/AdvReac Type Severity Reaction Status Date / Time No Known Allergies Allergy Verified 12/09/23 20:29 Family History Other Alcoholism Arthritis CAD (coronary artery disease) Cancer Heart disease Hypertension Melanoma Myocardial infarction Skin cancer Social History Smoking Status: Former smoker alcohol intake: never substance use type: former substance user Date of last use: 26 months ago (h eroin/methamphetamines) ROS ROS ED Constitutional Constitutional ED: Denies chills or fever(s) Eyes Eyes: Denies change in vision ENT ENT ED: Denies ear pain or sore throat Cardiovascular Cardiovascular: Denies chest pain Respiratory/Chest Respiratory/Chest: Denies cough, dyspnea or sputum Gastrointestinal Gastrointestinal: Denies abdominal pain, constipation, diarrhea, nausea or vomiting Genitourinary Genitourinary ED: Denies dysuria, hematuria or urinary frequency Musculoskeletal Musculoskeletal: Reports other Details: Left leg pain ; Denies arthralgias, myalgias or neck pain Integumentary Denies abscess, Abrasions or rash Neurologic Neurologic: Denies headache(s), paresthesias or weakness Psychiatric Psychiatric: Denies anxiety, depression, suicidal ideation or suicidal thoughts Endocrine Endocrinology: Denies polydipsia or polyuria EXAM Physical Exam Const Vital Signs: 12/09/23 20:30 Temperature 97.3 F L Temperature Source Temporal Pulse Rate 94 Respiratory Rate 18 Blood Pressure 148/97 H Blood Pressure Mean 114 Pulse Ox 100 Oxygen Delivery Method Room Air Positive well nourished General Appearance ED: NAD HEENT Reports moist mucous membranes normocephalic Resp normal respiratory effort Cardio regular rate and regular rhythm Extremity Extremity Narrative: There is mild tenderness to palpation noted to the distal tibial region just lateral to the midline on the left lower extremity. There is no rash, edema, ecchymosis. Patient able to dorsiflex and plantarflex the left ankle without difficulty. Negative Homans' sign. No cords palpated. Compartments are soft. Negative Franco test. Left foot neurovascular intact throughout. Neuro oriented x3 Sensorium / Orientation: alert Motor Exam: strength 5/5 throughout Psych mental status grossly normal MDM MDM MDM Narrative Medical decision making narrative: Patient presenting with left lower leg pain. His exam is essentially unremarkable except for some mild tenderness which is just lateral to the midline on the distal tibia. There is no bony tenderness. Strength is 5/5. Neurovascular intact. No evidence of Achilles injury or DVT. After some discussion we did get a duplex of the left lower extremity which is negative. I do not believe x-rays are clear to me if any use. Patient was placed on Naprosyn. Patient may have slight tendinitis. Impression: 1. Left leg pain Lab Data Attestation: I reviewed the patient's lab results. Discharge Plan Triage Chief Complaint: Lower Extremity Injury ED Provider: Gabe Patino Dx/Rx/DC Orders Instructions: ED Tendonitis Prescriptions: New naproxen [Naprosyn] 500 mg tablet 500 mg PO BID PRN (Reason: pain) Qty: 20 0RF No Action lisinopril 40 mg tablet 40 mg PO DAILY lisinopril 40 mg tablet 40 mg PO DAILY hydrocodone-acetaminophen 5-325 mg tablet 1 tab PO Q8H 5 Days Qty: 15 0RF amoxicillin-pot clavulanate 875-125 mg tablet 1 tab PO Q12H Qty: 20 0RF Primary Care Provider: Yoselin Pickard Referrals: Yoselin Pickard MD [Primary Care Provider] - Disposition Disposition: Home, Self Care
== END 2023-12-09 21:34 | disposition home or self-care (01) ==
PROVIDERS: Emergency Provider Student in an Organized Health Care Education/Training Program; PCP Family Medicine; Visit Provider Student in an Organized Health Care Education/Training Program
DX: M79.605 Pain in left leg (principal); M77.9 Enthesopathy, unspecified; I10 Essential (primary) hypertension; K21.9 Gastro-esophageal reflux disease without esophagitis; Z87.891 Personal history of nicotine dependence
CPT/HCPCS: 93971; 99282

== ENCOUNTER → 2023-12-28 | Outpatient (CLI) | payer MEDICAID, SELFPAY | END | disposition home or self-care (01) | LOC: SL 09:15 | PROVIDERS: PCP Family Medicine; Referring Provider Family Medicine; Visit Provider Family Medicine | DX: G47.10 Hypersomnia, unspecified (principal) | CPT/HCPCS: 95801; 95806 ==

== ENCOUNTER 2024-01-13 17:00 | Outpatient (RCR) | payer MEDICAID, SELFPAY ==
--- NOTE | 2023-11-03 09:30 | HP.PTEVAL ---
Patient's Visit Information Visit Information Visit Information: EUSEBIA HAMILTON is a 38 year old M referred to Physical Therapy by Yoeslin Pickard MD with a diagnosis of R medial epiconylitis. Date of Evaluation: 11/03/23 Physical Therapist: GEE Cohen Visit Plan Frequency: 2x /Week Duration: 6 Weeks Plan: See effectiveness of US to the R lateral epicondyle (X 8 min At 50% 1.1) Pt to get wrist cock up brace and lateral epicondyle brace. To wear wrist brace during day and night and elbow brace during the day 2X/ week for 6 weeks for wrist ext stretching, MT, US, and ice to the R wrist ext insertion, eccentric strength, brace wearing with HEP HEP: wrist ext stretch with elbow in extension Subjective Subjective: Pt has a lot of pain in his R elbow and now the pain is in the wrist and in the shoulder. This would happen during softball season and would got away. This wakes him up when he sleeps. 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 This happened in May and has not gotten any better. Dr said injections or PT. He has neck pain also. Pain R elbow pain: Pain Intensity (Out of 10): 7 R wrist pain: Pain Intensity (Out of 10): 7 R shoulder pain: Pain Intensity (Out of 10): 7 Objective Objective: R handed R Arm flexed 55# and L 90# R Arm extended R 10# and L 82# R elbow AROM: full ROM but increase pain R elbow flexion 12.7 and L 17.9 R elbow ext 11 and L 15.4 R wrist ext 7.9 and L 12.4 Palpation:Tender along the lateral epicondyle on the R and extensor tendons on the R. Increase pain with resisted wrist extension Instructed pt in wrist ext stretch and pt had some pain with that. Balance/Special Test Scores Quick DASH Score: 75.0000 Goals Goal 1:: I HEP Goal Time Frame: 6-8 Weeks Goal 2:: Be able to use her R wrist and elbow without having pain Goal Time Frame: 6-8 Weeks Goal 3:: Increase R wrist associate marketing manager strength (at the time of the eval: R Arm flexed 55# and L 90# R Arm extended R 10# and L 82#) Goal Time Frame: 6-8 Weeks Rehabilitation Potential Rehabilitation Potential: Good Anticipated Interventions Patient/Client Instruction: Educate patient on: Condition and Plan of Care For the Purpose of:: To decrease pain, To decrease swelling/inflammation, To increase ROM, To improve nutrient delivery to tissue, To improve muscle performance and motor function, To improve ability to perform ADL's, To increase tolerance to activity/condition/position, To improve performance and independence with ADL's, To improve health of tissue, To decrease soft tissue restriction and To increase flexibility/ROM Therapeutic Exercise to Include: Strength training, Endurance training, Flexibilty training, Passive ROM and Active ROM For the Purpose of:: To decrease pain, To decrease swelling/inflammation, To increase ROM, To improve nutrient delivery to tissue, To improve muscle performance and motor function, To improve ability to perform ADL's, To increase tolerance to activity/condition/position, To improve performance and independence with ADL's, To decrease level of supervision to perform tasks, To improve health of tissue, To decrease soft tissue restriction and To increase flexibility/ROM Manual Therapy Techniques to Include: Mobilization, Passive ROM and Soft tissue mobilization For the Purpose of:: To decrease swelling/inflammation, To increase ROM, To improve nutrient delivery to tissue, To increase oxygenation perfusion, To improve muscle performance and motor function, To improve ability to perform ADL's, To improve health of tissue, To decrease soft tissue restriction and To increase flexibility/ROM Cryotherapy (ice pack, ice massage): Yes Ultrasound (thermal/non thermal): Yes For the Purpose of:: To decrease pain, To decrease swelling/inflammation, To increase ROM, To improve nutrient delivery to tissue and To improve muscle performance and motor function Text: Thank you for the opportunity to evaluate your patient. For Medicare and Medicare HMO plans, please review the plan of care and approve it. It will need to be FAXED BACK to us at [phone] for Medicare purposes. For Medicare only, by signing this I certify the plan of care. Please let me know if there are questions or concerns regarding this plan of care. Physician Signature: Date:
--- NOTE | 2023-11-30 13:33 | HP.PTREVAL ---
Re-Evaluation Intro: Yoselin Pickard MD, It has been my pleasure to treat EUSEBIA HAMILTON over the last 8 visits for R medial epiconylitis. Please see the progress note below for an update on the physical therapy plan of care! Subjective Subjective: 50-60% improvement. Still wearing both braces. Still pain with swinging a hammer and picking things up. He feels better when he leaves here. He is talking about an injection. 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 plasterer helper strength (at the time of the eval: R Arm flexed 55# and L 90# R Arm extended R 10# and L 82#) Goal Time Frame: 6-8 Weeks Anticipated Interventions Anticipated Interventions Patient/Client Instruction: Educate patient on: Condition and Plan of Care For the Purpose of:: To decrease pain, To decrease swelling/inflammation, To increase ROM, To improve nutrient delivery to tissue, To improve muscle performance and motor function, To improve ability to perform ADL's, To increase tolerance to activity/condition/position, To improve performance and independence with ADL's, To improve health of tissue, To decrease soft tissue restriction and To increase flexibility/ROM Therapeutic Exercise to Include: Strength training, Endurance training, Flexibilty training, Passive ROM and Active ROM For the Purpose of:: To decrease pain, To decrease swelling/inflammation, To increase ROM, To improve nutrient delivery to tissue, To improve muscle performance and motor function, To improve ability to perform ADL's, To increase tolerance to activity/condition/position, To improve performance and independence with ADL's, To decrease level of supervision to perform tasks, To improve health of tissue, To decrease soft tissue restriction and To increase flexibility/ROM Manual Therapy Techniques to Include: Mobilization, Passive ROM and Soft tissue mobilization For the Purpose of:: To decrease swelling/inflammation, To increase ROM, To improve nutrient delivery to tissue, To increase oxygenation perfusion, To improve muscle performance and motor function, To improve ability to perform ADL's, To improve health of tissue, To decrease soft tissue restriction and To increase flexibility/ROM Cryotherapy (ice pack, ice massage): Yes Ultrasound (thermal/non thermal): Yes For the Purpose of:: To decrease pain, To decrease swelling/inflammation, To increase ROM, To improve nutrient delivery to tissue and To improve muscle performance and motor function Re-Evaluation Ending Re-evaluation ending: Please do not hesitate to contact me at [phone] by phone or if you have questions or concerns regarding this new plan of care! Sincerely, Irlanda Perera, MPT
--- NOTE | 2023-12-29 17:17 | HP.PTEVAL2_ITS ---
Patient's Visit Information Visit Information Visit Information: EUSEBIA HAMILTON is a 38 year old M referred to Physical Therapy by Yoselin Pickard MD with a diagnosis of Anterior tibialis L leg. Date of Evaluation: 12/29/23 Physical Therapist: Bryce Nguyen, DPT, OCS, CSCS Visit Plan Frequency: 2-3x /Week Duration: 2-4 Weeks Plan: 2-3x/week for 2-4 weeks for 1. US thermal to L ant tibialis, STM to same and stretch with DTR. 2. strength anterior tibialis and evertors and PFers. Subjective Subjective: Left lateral leg is swollen and hurts laterally. It hurts most steps, hurts to move up and down but not side to side. It has hurt for a month. Saw [facility] urgent care adn had US for blood clot which was negative. X ray was fine. Started on Thursday and not sure how it started, no injury. pain is lateral at and above ankle. Saw ortho for leg and therapy first, may get MRI. L elbow hurts and not sure why, is in therapy for R UE. Had blood tests , no autoimmune or rhumatology problems that he knows of. Sleep is interrupted sometimes but can sleep well much of time. Works at [employer] and all day 10 hour shifts. Leg is worse at end of day. 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 Pain L lateral leg ankle: Intensity: 2 Pain Intensity Range: 0 and 6 Objective Objective: Walks with some minor L antalgia into PT, has history of L knee problem and cannot comfortably straighten L knee but that is normal for him. Tender to palpation over L anterior tibialis leticia-proximal to lat malleoli moderately, not on R, not in peroneals or malleolus. Ankle aROM at ankle is tender to DF especially with inversion and gets 0 DF, ev/inv symmetrical and WNL, PF mildly tender and full. no unusual posturing at foot or ankle, just flexion maintained in L knee slightly. unable to SL stand on l leg due to knee. strength is 4- L Df with pain, 4+ R, inv and ev are 4+ B without pain, PF is painful L as is heel raise but able and 4/5 L vs 5/5 R. reflexes 0/3 patella and achilles Sensation LE WNL to gross light touch - slump - SLR Goals Goal 1:: Pain L ankle 1/10 at worst adn intermittent at 80% better Goal Time Frame: 4-6 Weeks Goal 2:: I appropriate management of condition Goal Time Frame: 4-6 Weeks Goal 3:: LEFS score 65 Goal Time Frame: 4-6 Weeks Goal 4:: work without increased pain Goal Time Frame: 4-6 Weeks Goal 5:: Sleep without interruption from L leg. Goal Time Frame: 4-6 Weeks Rehabilitation Potential Physical Therapy Diagnosis: L anterior tibialis L pain limiting comfortable funciton Rehabilitation Potential: Fair Anticipated Interventions Patient/Client Instruction: Educate patient on: Condition and Plan of Care For the Purpose of:: To decrease pain, To increase ROM, To improve nutrient delivery to tissue, To increase tolerance to activity/condition/position and To improve ability of physical actions for home/community/work/leisure Therapeutic Exercise to Include: Strength training, Flexibilty training, Gait and locomotor training, Passive ROM and Active ROM For the Purpose of:: To decrease pain, To increase ROM, To improve nutrient delivery to tissue and To improve muscle performance and motor function Manual Therapy Techniques to Include: Trigger point massage, Scar massage, Mobilization and Passive ROM For the Purpose of:: To decrease pain, To increase ROM, To improve nutrient delivery to tissue, To improve muscle performance and motor function and To increase tolerance to activity/condition/position text: Thank you for the opportunity to evaluate your patient. For Medicare and Medicare HMO plans, please review the plan of care and approve it. It will need to be FAXED BACK to us at [phone] for Medicare purposes. For Medicare only, by signing this I certify the plan of care. Please let me know if there are questions or concerns regarding this plan of care. Physician Signature: Date:
--- NOTE | 2024-05-24 08:05 | HP.PT.NRP ---
Patient Information Patient Information: EUSEBIA HAMILTON was seen in my office for initial evaluation on 11/03/23. The following Plan of Care was established for this patient: POC Established Initial Frequency: 2x /Week Initial Duration: 6 Weeks Anticipated Interventions Patient/Client Instruction: Educate patient on: Condition and Plan of Care For the Purpose of:: To decrease pain, To decrease swelling/inflammation, To increase ROM, To improve nutrient delivery to tissue, To improve muscle performance and motor function, To improve ability to perform ADL's, To increase tolerance to activity/condition/position, To improve performance and independence with ADL's, To improve health of tissue, To decrease soft tissue restriction and To increase flexibility/ROM Therapeutic Exercise to Include: Strength training, Endurance training, Flexibilty training, Passive ROM and Active ROM For the Purpose of:: To decrease pain, To decrease swelling/inflammation, To increase ROM, To improve nutrient delivery to tissue, To improve muscle performance and motor function, To improve ability to perform ADL's, To increase tolerance to activity/condition/position, To improve performance and independence with ADL's, To decrease level of supervision to perform tasks, To improve health of tissue, To decrease soft tissue restriction and To increase flexibility/ROM Manual Therapy Techniques to Include: Mobilization, Passive ROM and Soft tissue mobilization For the Purpose of:: To decrease swelling/inflammation, To increase ROM, To improve nutrient delivery to tissue, To increase oxygenation perfusion, To improve muscle performance and motor function, To improve ability to perform ADL's, To improve health of tissue, To decrease soft tissue restriction and To increase flexibility/ROM Cryotherapy (ice pack, ice massage): Yes Ultrasound (thermal/non thermal): Yes For the Purpose of:: To decrease pain, To decrease swelling/inflammation, To increase ROM, To improve nutrient delivery to tissue and To improve muscle performance and motor function Last Seen Last Seen: This patient was last seen in our office 01/13/24. Pertinent comments regarding their Physical therapy will appear below: [facility] At this point I will be discontinuing this patient from physical therapy. I would be happy to see this patient again in the future if found appropriate by the physician. Thank you! Irlanda Perera, MPT Balance/Gait/Functional tests Balance/Special Test Scores Lower Extremity Functional Score: 44 Quick DASH Score: 59.0900
== END 2024-01-13 19:00 | disposition home or self-care (01) ==
LOC: PT 17:00
PROVIDERS: PCP Family Medicine; Referring Provider Orthopaedic Surgery; Visit Provider Orthopaedic Surgery
DX: M77.01 Medial epicondylitis, right elbow (principal)
CPT/HCPCS: 97016; 97035; 97110; 97140; 97161; 97162

== ENCOUNTER → 2024-01-22 | Outpatient (CLI) | payer MEDICAID, SELFPAY ==
--- NOTE | 2024-01-22 15:24 | MRI_ITS ---
EXAM: MR RIGHT UPPER EXTREMITY WITHOUT INTRAVENOUS CONTRAST, FOREARM CLINICAL INDICATION: Pain PROXIMAL FOREARM, DECREASED RIVER PILOT STRENGTH, WORSENING OVER LAST 2 MONTHS, NO KNOWN INJURY TECHNIQUE: Multiplanar and multisequence MR images of the right forearm without intravenous contrast. COMPARISON: No relevant prior studies available. FINDINGS: BONES/JOINTS: High-grade partial-thickness tear suspected involving the common extensor tendon origin which can be further better evaluated with dedicated MRI of the elbow. No fracture. No abnormal bone marrow signal. No joint effusion. MUSCLES: Unremarkable. No muscle atrophy or edema. OTHER SOFT TISSUES: Unremarkable. No solid or cystic mass. MRI/Upper Ext/No Jt/ wo IMPRESSION: High-grade partial-thickness tear suspected involving the common extensor tendon origin (not completely imaged on this study) which can be further better evaluated with dedicated MRI of the elbow. No Electronically Signed: Singh Funes MD at 21:25 EDT ,
--- NOTE | 2024-01-22 15:35 | RAD_ITS ---
STUDY: X-RAY - ORBITS REASON FOR EXAM: Male, 39 years old. HX METAL TO EYE; PRE MRI TECHNIQUE: 2 view(s) of the orbits were obtained. COMPARISON: None. FINDINGS: Normal bilateral orbits without a metallic orbital foreign body. Normal visualized facial bones. Normal paranasal sinuses. The soft tissue structures are unremarkable. RAD/Orbits for Foreign Body IMPRESSION: No demonstrated metallic orbital foreign body. The patient is cleared for an MRI examination. Electronically Signed: Isidro Ball MD at 16:11 EDT ,
== END | disposition home or self-care (01) ==
LOC: MRI 15:14
PROVIDERS: PCP Family Medicine; Referring Provider Orthopaedic Surgery; Visit Provider Orthopaedic Surgery
DX: M79.89 Other specified soft tissue disorders (principal); M79.639 Pain in unspecified forearm
CPT/HCPCS: 70030; 73218

== ENCOUNTER 2024-03-04 16:30 | Outpatient (RCR) | payer MEDICAID, SELFPAY ==
--- NOTE | 2024-02-11 18:22 | HP.PTEVAL_ITS ---
Patient's Visit Information Visit Information Visit Information: EUSEBIA HAMILTON is a 39 year old M referred to Physical Therapy by Dr. Avery Kumar DO with a diagnosis of LATERAL EPICONDYLITIS RIGHT ELBOW , LESION OF RADIAL NERVE. Date of Evaluation: 02/11/24 Physical Therapist: Reynaldo Webb, PT, Cert MDT, OCS Visit Plan Frequency: 2x /Week Duration: 4 Weeks Plan: MRI SHOWED:High-grade partial-thickness tear suspected involving the common extensor tendon origin PT INTERVENTIONS MANUAL THERAPY STM/HAWK EXTENSOR FOREARM ,US/EXTIM,STRETCHING ,AND STRENGTHENING ( ECCENTRICS) ELBOW/WRIST/FOREARM Subjective Subjective: This 39 y/o male presents to physical therapy with lateral epicondylitis right elbow and right tunnel syndrome. Patient has had elbow Oct of last year. Progressively worse .Patient tried PT last October helped some . But return to MRI showed High-grade partial-thickness tear suspected involving the common extensor tendon origin . Did cortisone . Initially seen Family MD then referred to Dr Adams . Pain located global elbow and forearm . Pain described ache. C/O paresthesia/tingling at night. Patient pain affects job demands and ADLS /housework tasks. Patient uses splint for wrist and elbow . Patient sleeping good. Dr recommended ibuprofen. 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: dynameter 85# right Special Tests R Elbow Flexion Test - Cubital Tunnel: Negative R Elbow Valgus Stress Test - MCL Instability: Negative R Elbow Varus Stress Stest - MCL Instability: Negative R Elbow Lat Epiconylitis - as named: Positive Balance/Special Test Scores Quick DASH Score: 43.1800 Goals Goal 1:: Patient to be I with HEP for elbow Goal Time Frame: 4-6 Weeks Goal 2:: Patient to improve peak force of wrist extensors by 5-10 # to improve strength Goal Time Frame: 4-6 Weeks Goal 3:: Patient to demonstrate 50% improvement with less pain and improved function with job demands Goal Time Frame: 4-6 Weeks Goal 4:: Patient to improve quick dash by 5 points to improve QOL and function Goal Time Frame: 4-6 Weeks Goal 5:: Patient be able to do job demands and ADL'S and housework tasks with min limitation Goal Time Frame: 4-6 Weeks Rehabilitation Potential Physical Therapy Diagnosis: This patient has High-grade partial-thickness tear suspected involving the common extensor tendon origin shown from MRI with pain and weakness but has been improving but pain with job demands and ADLS thus benefit from skilled PT Rehabilitation Potential: Good Anticipated Interventions Patient/Client Instruction: Educate patient on: Condition and Plan of Care For the Purpose of:: To decrease pain, To increase ROM, To improve muscle performance and motor function, To improve ability to perform ADL's, To increase tolerance to activity/condition/position, To improve ability of physical actions for home/community/work/leisure and To improve health of tissue Therapeutic Exercise to Include: Strength training, Flexibilty training and Active ROM Comment: ELBOW/WRIST/FOREARM ECCENTRICS For the Purpose of:: To decrease pain, To increase ROM, To improve muscle performance and motor function, To increase tolerance to activity/condition/position, To improve ability of physical actions for home/community/work/leisure, To improve health of tissue, To decrease soft tissue restriction, To increase flexibility/ROM and To reduce risk of recurrence Manual Therapy Techniques to Include: Mobilization and Soft tissue mobilization For the Purpose of:: To decrease pain, To increase ROM, To improve nutrient delivery to tissue, To increase oxygenation perfusion, To improve health of tissue and To decrease soft tissue restriction TENS: Yes IF ES: Yes Cryotherapy (ice pack, ice massage): Yes Thermo therapy (hot pack): Yes Ultrasound (thermal/non thermal): Yes For the Purpose of:: To decrease pain, To increase ROM, To improve nutrient delivery to tissue, To increase oxygenation perfusion, To improve health of tissue and To decrease soft tissue restriction Text: Thank you for the opportunity to evaluate your patient. For Medicare and Medicare HMO plans, please review the plan of care and approve it. It will need to be FAXED BACK to us at [phone] for Medicare purposes. For Medicare only, by signing this I certify the plan of care. Please let me know if there are questions or concerns regarding this plan of care. Physician Signature: Date:
== END 2024-03-04 19:00 | disposition home or self-care (01) ==
LOC: PT 16:30
PROVIDERS: PCP Family Medicine; Referring Provider Orthopaedic Surgery; Visit Provider Orthopaedic Surgery
DX: M77.11 Lateral epicondylitis, right elbow (principal); G56.31 Lesion of radial nerve, right upper limb
CPT/HCPCS: 97035; 97110; 97140; 97162